=== PATIENT | male | born 1970 | race Caucasian/White ===

== ENCOUNTER 2017-02-25 10:01 | Inpatient (IN) | payer OTHER ==
[2017-02-25 10:16] VITALS: BMI 26.6
--- NOTE | 2017-02-25 10:42 | HP ---
CIWA Score - CIWA Score Nausea/Vomitin-Mild Nausea/No Vomiting Muscle Tremors: 1-None Visible, but [place] Anxiety: 4-Mod. Anxious/Guarded Agitation: 1-Slight > Activity Paroxysmal Sweats: 1-Minimal Palms Moist Orientation: 0-Oriented Tacttile Disturbances: 1-Very Mild Itch/Numbness Auditory Disturbances: 1-Very Mild Visual Disturbances: 2-Mild Sensitivity Headache: 2-Mild CIWA-Ar Total Score: 14 Admission ROS BHS - HPI Chief Complaint: I want to put an end to it and I want to save my life Allergies/Adverse Reactions: Allergies Allergy/AdvReac Type Severity Reaction Status Date / Time No Known Allergies Allergy Verified 01/31/16 12:38 History of Present Illness: 46 yo gentleman here for detox from alcohol, sometimes takes non prescribed xanax and using heroin but in [facility] methadone program (80mg). Unclear if he ever had seizure - patient states no but admits to black outs. One of several admissions for detox. 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 Exam Limitations: Clinical Condition - Ebola screening Have you traveled outside of the country in the last 21 days: No Have you had contact with anyone from an Ebola affected area: No Have you been sick,other than usual withdrawal symptoms: No Do you have a fever: No - Review of Systems Constitutional: Loss of Appetite, Malaise, Changes in sleep, Weakness EENT: reports: Nose Congestion Respiratory: reports: No Symptoms reported Cardiac: reports: No Symptoms Reported GI: reports: Nausea, Poor Appetite : reports: Frequency Musculoskeletal: reports: Back Pain Integumentary: reports: Rash Neuro: reports: Headache Endocrine: reports: No Symptoms Reported Hematology: reports: No Symptoms Reported Psychiatric: reports: Judgement Intact, Mood/Affect Appropiate, Orientated x3, Anxious Other Systems: Reviewed and Negative Patient History - Patient Medical History Hx Anemia: No Hx Asthma: No Hx Chronic Obstructive Pulmonary Disease (COPD): No Hx Cancer: No Hx Cardiac Disorders: No Hx Congestive Heart Failure: No Hx Hypertension: No Hx Hypercholesterolemia: No Hx Pacemaker: No HX Cerebrovascular Accident: No Hx Seizures: Yes (? unclear, possible drug related once in 2008) Hx Dementia: No Hx Diabetes: No Hx Gastrointestinal Disorders: No Hx Liver Disease: No Hx Genitourinary Disorders: No Hx Sexually Transmitted Disorders: No Hx Renal Disease (ESRD): No Hx Thyroid Disease: No Hx Human Immunodeficiency Virus (HIV): No Hx Hepatitis C: Yes (treated and cured) Hx Depression: Yes (anxiety) Hx Suicide Attempt: No Hx Bipolar Disorder: No Hx Schizophrenia: No Other Medical History: back pain, PPD+ - treated - Patient Surgical History Past Surgical History: Yes Hx Neurologic Surgery: No Hx Cataract Extraction: No Hx Cardiac Surgery: No Hx Lung Surgery: No Hx Breast Surgery: No Hx Breast Biopsy: No Hx Abdominal Surgery: No Hx Appendectomy: No Hx Cholecystectomy: No Hx Genitourinary Surgery: No Hx Section: No Hx Orthopedic Surgery: No Other Surgical History: tonsillectomy at age 6 Anesthesia Reaction: No - PPD History Previous Implant?: Yes Documented Results: Positive w/proof (treated with INH 1986) Date: 07/15/15 (cxr) PPD to be Administered?: No - Reproductive History Patient is a Female of Child Bearing Age (11 -55 yrs old): No (male) - Smoking Cessation Smoking history: Smoker current status UNK Have you smoked in the past 12 months: No Aproximately how many cigarettes per day: 20 Hx Chewing Tobacco Use: No Initiated information on smoking cessation: Yes 'Breaking Loose' booklet given: 02/25/17 (give on floor) - Substance & Tx. History Hx Alcohol Use: Yes Hx Substance Use: Yes Substance Use Type: Alcohol, Heroin, Tranquilizers Hx Substance Use Treatment: Yes (detox, rehab, methadone program) - Substances Abused Alcohol Route: Oral Frequency: Daily Amount used: two six packs 22 oz beer Age of first use: 7 Date of Last Use: 02/25/17 Heroin Route: Inhalation Frequency: Daily Amount used: 4-10 bags Age of first use: 16 Date of Last Use: 02/24/17 Alprazolam (Xanax) Frequency: 1-2 times per week Amount used: 2mg Age of first use: 12 (started with valium) Date of Last Use: 02/24/17 Family Disease History - Family Disease History Family Disease History: Other: Father (, aneurysm), Mother (living, healthy), Brother (four -one overdose), Daughter (age 8 - no contact) Admission Physical Exam BHS - Vital Signs Vital Signs: Vital Signs - 24 hr 02/25/17 10:07 Temperature 97.8 F Pulse Rate 84 Respiratory 20 Rate Blood Pressure 123/69 - Physical General Appearance: Yes: Nourished, Appropriately Dressed, Mild Distress, Anxious HEENTM: Yes: Hearing grossly Normal, Normal ENT Inspection, Normocephalic, Normal Voice, Pharynx Normal Respiratory: Yes: Lungs Clear, Normal Breath Sounds, No Respiratory Distress Neck: Yes: No masses,lesions,Nodules, Supple Breast: Yes: Breast Exam Deferred Cardiology: Yes: Regular Rhythm, Regular Rate Abdominal: Yes: Soft Genitourinary: Yes: Frequency Back: Yes: Normal Inspection Musculoskeletal: Yes: full range of Motion, Gait Steady, Back pain Extremities: Yes: Normal Inspection, Normal Range of Motion, Non-Tender Neurological: Yes: Fully Oriented, Alert, Motor Strength 5/5, Normal Mood/Affect , Normal Response Integumentary: Yes: Normal Color, Warm, Rash (chronic - non itchy - arms, torso) Lymphatic: Yes: Within Normal Limits - Diagnostic (1) Alcohol dependence with uncomplicated withdrawal Current Visit: Yes Status: Chronic (2) syncope alcohol related Current Visit: Yes Status: Chronic (3) Chronic low back pain Current Visit: Yes Status: Chronic Qualifiers: Back pain laterality: bilateral Sciatica presence: without sciatica Qualified Code(s): M54.5 - Low back pain; M54.5 - Low back pain; G89.29 - Other chronic pain; G89.29 - Other chronic pain (4) Methadone maintenance therapy patient Current Visit: Yes Status: Chronic Comment: [facility] - 80mg (5) Nicotine dependence Current Visit: Yes Status: Chronic Qualifiers: Nicotine product type: cigarettes Substance use status: uncomplicated Qualified Code(s): F17.210 - Nicotine dependence, cigarettes, uncomplicated; F17.210 - Nicotine dependence, cigarettes, uncomplicated (6) Hepatitis C antibody positive in blood Current Visit: Yes Status: Chronic Comment: completed treatment Cleared for Admission [facility] - Detox or Rehab [facility] Level of Care: Medically Managed Detox Regimen/Protocol: Librium [facility] Breath Alcohol Content Breath Alcohol Content: 0.083 Urine Drug Screen - Results Drug Screen Negative: No Urine Drug Screen Results: OPI-Opiates, BZO-Benzodiazepines, MTD-Methadone
[2017-02-25] MEDS ORDERED: MAG HYDROX/AL HYDROX/SIMETH 30 ML UNIT-DOSE CUP PO PRN (11:45)
[2017-02-25] MEDS ORDERED: NICOTINE POLACRILEX 2 MG GUM BUC PRN (11:45)
[2017-02-25] MEDS ORDERED: ACETAMINOPHEN 325 MG TABLET (FP) PO PRN (11:45)
[2017-02-25] MEDS ORDERED: LOPERAMIDE HCL 2 MG CAPSULE PO PRN (11:45)
[2017-02-25] MEDS ORDERED: MENTHOL/PHENOL 1 EACH UD MM PRN (11:45)
[2017-02-25] MEDS ORDERED: guaiFENesin/D-METHORPHAN HB 10 ML UNIT-DOSE CUPS PO PRN (11:45)
[2017-02-25] MEDS ORDERED: MAGNESIUM HYDROX 2400MG/30ML ORAL SUSPENSION 30 ML CUP PO PRN (11:45)
[2017-02-25] MEDS ORDERED: hydrOXYzine PAMOATE 50 MG CAPSULE (FP) PO PRN (11:45)
[2017-02-25] MEDS ORDERED: P-EPHED 60MG/TRIPROLIDI 2.5MG TABLET PO PRN (11:45)
[2017-02-25] MEDS ORDERED: MAGNESIUM CITRATE 300 ML BOTTLE PO PRN (11:45)
[2017-02-25] MEDS ORDERED: IBUPROFEN 400 MG TABLET (FP) PO PRN (11:45)
[2017-02-25] MEDS ORDERED: chlordiazePOXIDE HCL 25 MG CAPSULE PO ONE (12:30)
[2017-02-25] MEDS: NICOTINE 21 MG/24 HOURS TOPICAL PATCH TD SCH (13:38)
[2017-02-25] MEDS: chlordiazePOXIDE HCL 25 MG CAPSULE PO SCH ×2 (17:53→22:30)
[2017-02-25 18:14] LABS: URINE APPEARANCE CLEAR; URINE BILIRUBIN NEGATIVE (NEGATIVE); URINE BLOOD NEGATIVE (NEGATIVE); URINE COLOR STRAW; URINE GLUCOSE (UA) NEGATIVE (NEGATIVE); URINE KETONE NEGATIVE (NEGATIVE); URINE NITRITE NEGATIVE (NEGATIVE); URINE PROTEIN NEGATIVE (NEGATIVE); URINE UROBILINOGEN NEGATIVE mg/dL (0.2-1.0)
--- NOTE | 2017-02-25 19:39 | EKG ---
Test Reason : Blood Pressure : / mmHG Vent. Rate : 075 BPM Atrial Rate : 075 BPM P-R Int : 134 ms QRS Dur : 094 ms QT Int : 402 ms P-R-T Axes : 034 022 016 degrees QTc Int : 448 ms NORMAL SINUS RHYTHM NORMAL ECG WHEN COMPARED WITH ECG OF 12-JAN-2010 21:36, NO SIGNIFICANT CHANGE WAS FOUND REPEAT EKG IF CLINICALLY INDICATED BASELINE ARTIFACT Confirmed by PHILIP PICKARD MD ([id number]) on 02/25/2017 7:39:07 PM Referred By: Confirmed By:PHILIP PICKARD MD
[2017-02-25] MEDS ORDERED: diphenhydrAMINE HCL 50 MG CAPSULE PO PRN (22:00)
[2017-02-25] MEDS: THIAMINE HCL 100 MG TABLET (FP) PO SCH (22:29)
[2017-02-25] MEDS: TOLNAFTATE 1% CREAM 15 GM TUBE TP SCH (22:31)
[2017-02-25 23:00] LABS: URINE LEUK ESTERASE Negative (NEGATIVE)
[2017-02-26] MEDS: chlordiazePOXIDE HCL 25 MG CAPSULE PO SCH ×4 (05:53→22:22)
[2017-02-26] MEDS: NICOTINE 21 MG/24 HOURS TOPICAL PATCH TD SCH (10:11)
[2017-02-26] MEDS: PRENATAL VITAMINS W/ FOLIC ACID TABLET (FP) PO SCH (10:11)
[2017-02-26] MEDS: TOLNAFTATE 1% CREAM 15 GM TUBE TP SCH ×2 (10:11→22:23)
[2017-02-26 10:22] LABS: ALBUMIN 3.2 g/dl (3.4-5.0); ANION GAP 5 (8-16); CALCIUM 8.8 mg/dL (8.5-10.1); CO2 30 mmol/L (21-32); CREATININE 0.7 mg/dL (0.7-1.3); GLUCOSE,RANDOM 103 mg/dL (74-106); SGOT/AST 17 U/L (15-37); SGPT/ALT 22 U/L (12-78)
[2017-02-26 10:23] LABS: ALK PHOS 67 U/L (45-117); BILIRUBIN,TOTAL 0.3 mg/dL (0.2-1.0); TOT PROT 6.2 g/dl (6.4-8.2)
[2017-02-26 10:26] LABS: MCHC 32.5 g/dl (32.0-35.9); PLATELET COUNT 231 K/MM3 (134-434); WHITE BLOOD COUNT 7.7 K/mm3 (4.0-10.0)
[2017-02-26] MEDS ORDERED: METHADONE HCL 10 MG TABLET PO SCH (10:30)
--- NOTE | 2017-02-26 10:31 | PN ---
[facility] CIWA - CIWA Score Nausea/Vomitin-No Nausea/No Vomiting Muscle Tremors: 4-Moderate,w/Arms Extend Anxiety: 4-Mod. Anxious/Guarded Agitation: 3 Paroxysmal Sweats: 3 Orientation: 0-Oriented Tacttile Disturbances: 0-None Auditory Disturbances: 0-None Visual Disturbances: 0-None Headache: 0-None Present CIWA-Ar Total Score: 14 BHS Progress Note (SOAP) Subjective: Anxiety,tremors,sweating,interrupted sleep,restless Objective: 02/26/17 10:30 Vital Signs - 8 hr 02/26/17 02/26/17 02/26/17 03:54 05:00 09:58 Temperature 96.9 F L 97 F L Pulse Rate 90 81 Respiratory 18 18 18 Rate Blood Pressure 100/60 126/63 Laboratory Tests 02/25/17 02/26/17 14:40 07:40 Sodium 139 Potassium 4.1 Chloride 104 Carbon Dioxide 30 Anion Gap 5 L BUN 13 Creatinine 0.7 D Creat Clearance w eGFR > 60 Random Glucose 103 D Calcium 8.8 Total Bilirubin 0.3 D AST 17 ALT 22 Alkaline Phosphatase 67 D Total Protein 6.2 L Albumin 3.2 L Urine Color Straw Urine Appearance Clear Urine pH 6.0 Ur Specific [place] <= 1.005 Urine Protein Negative Urine Glucose (UA) Negative Urine Ketones Negative Urine Blood Negative Urine Nitrite Negative Urine Bilirubin Negative Urine Urobilinogen Negative Ur Leukocyte Esterase Negative labs noted Assessment: 02/26/17 10:30 Withdrawal sx. Plan: Continue detox
[2017-02-26] MEDS ORDERED: METHADONE HCL 10 MG TABLET ONE (11:22)
[2017-02-26] MEDS ORDERED: METHADONE HCL 40 MG DISPERSABLE TABLET ONE (11:23)
[2017-02-26] MEDS: METHADONE 40 MG, METHADONE 30 MG PO SCH (11:24)
--- NOTE | 2017-02-26 11:32 | CONSULT ---
[facility] Psychiatric Consult - Data Date of interview: 02/26/17 Admission source: Self-referred Identifying data: Mr Robledo is a 46 years old male, father of an 8 years old daughter, employed in maintenance at [employer], homeless staying with friends Substance Abuse History: Reports history of alcohol, heroin and Xanax use. Refer to medical and counselor's notes for more detailed information Medical History: Significant for treatment for +PPD and hepatitis c, Sciatica/ Hernated Disc/back pain and history of tonsillectomy at age 4. Smokes 7 cigarettes daily Psychiatric History: Reports a few psychiatric admissions in the context of homelessness, addiction and other psychosocial issues. Denies previous treament with psychiatric medication. Reports sleeping poorly and requested Ambien to which he responded well in the past Physical/Sexual Abuse/Trauma History: Denies history of verbal, physical or sexual abuse as well as DV relationship Additional Comment: Reports history of mutiple arrests including 5 felony convictions. Denies being on parole/probation Mental Status Exam - Mental Status Exam Alert and Oriented to: Time, Place, Person Cognitive Function: Fair Patient Appearance: Well Groomed Mood: Hopeful, Euthymic Affect: Appropriate Patient Behavior: Cooperative Speech Pattern: Clear Voice Loudness: Normal Thought Process: Intact, Goal Oriented Thought Disorder: Not Present Hallucinations: Denies Suicidal Ideation: Denies Homicidal Ideation: Denies Insight/Judgement: Poor Sleep: Poorly Appetite: Fair Muscle strength/Tone: Normal Gait/Station: Normal Psychiatric Findings - Problem List ([place] 1, 2,3) (1) Substance-induced sleep disorder Current Visit: No Status: Acute (2) Alcohol dependence with uncomplicated withdrawal Current Visit: Yes Status: Chronic (3) Uncomplicated sedative, hypnotic or anxiolytic withdrawal Current Visit: No Status: Acute (4) Opioid dependence on agonist therapy Current Visit: No Status: Acute (5) Nicotine dependence Current Visit: Yes Status: Chronic Qualifiers: Nicotine product type: cigarettes Substance use status: uncomplicated Qualified Code(s): F17.210 - Nicotine dependence, cigarettes, uncomplicated; F17.210 - Nicotine dependence, cigarettes, uncomplicated (6) Chronic low back pain Current Visit: Yes Status: Chronic Qualifiers: Back pain laterality: bilateral Sciatica presence: without sciatica Qualified Code(s): M54.5 - Low back pain; M54.5 - Low back pain; G89.29 - Other chronic pain; G89.29 - Other chronic pain (7) Hepatitis C antibody positive in blood Current Visit: Yes Status: Chronic Comment: completed treatment (8) Right sided sciatica Current Visit: No Status: Acute - Initial Treatment Plan Initial Treatment Plan: 1) Start Ambien 10 mg po HS prn for insomnia. 2) Continue inpatient detoxication
[2017-02-26] MEDS ORDERED: ZOLPIDEM TARTRATE 5 MG TABLET PO PRN (12:02)
[2017-02-26] MEDS: chlordiazePOXIDE HCL 25 MG CAPSULE PO PRN (14:45)
[2017-02-26] MEDS: ZOLPIDEM TARTRATE 5 MG TABLET PO PRN (22:22)
[2017-02-26] MEDS: THIAMINE HCL 100 MG TABLET (FP) PO SCH (22:22)
[2017-02-27] MEDS ORDERED: METHADONE HCL 10 MG TABLET ONE (03:53)
[2017-02-27] MEDS ORDERED: METHADONE HCL 40 MG DISPERSABLE TABLET ONE (03:54)
[2017-02-27] MEDS: METHADONE 40 MG, METHADONE 30 MG PO SCH (05:04)
[2017-02-27] MEDS: chlordiazePOXIDE HCL 25 MG CAPSULE PO SCH ×2 (05:05→10:30)
[2017-02-27] MEDS: chlordiazePOXIDE HCL 25 MG CAPSULE PO PRN (08:27)
[2017-02-27] MEDS: PRENATAL VITAMINS W/ FOLIC ACID TABLET (FP) PO SCH (10:30)
[2017-02-27] MEDS: NICOTINE 21 MG/24 HOURS TOPICAL PATCH TD SCH (10:30)
[2017-02-27] MEDS: TOLNAFTATE 1% CREAM 15 GM TUBE TP SCH ×2 (10:30→22:38)
--- NOTE | 2017-02-27 11:19 | PN ---
[facility] CIWA - CIWA Score Nausea/Vomitin-No Nausea/No Vomiting Muscle Tremors: 4-Moderate,w/Arms Extend Anxiety: 4-Mod. Anxious/Guarded Agitation: 4-Moderately Restless Paroxysmal Sweats: 1-Minimal Palms Moist Orientation: 1-Uncertain about Date Tacttile Disturbances: 3-Moderate Itch/Numb/Burn Auditory Disturbances: 0-None Visual Disturbances: 0-None Headache: 0-None Present CIWA-Ar Total Score: 17 S Progress Note (SOAP) Subjective: ANXIETY,SWEATS/CHILLS, IRRITABILITY,FATIGUE. Objective: 02/27/17 11:23 Laboratory Last Values WBC 7.7 K/mm3 (4.0-10.0) 02/26/17 07:40 RBC 5.11 M/mm3 (4.00-5.60) 02/26/17 07:40 Hgb 14.8 GM/dL (11.7-16.9) 02/26/17 07:40 Hct 45.5 % (35.4-49) 02/26/17 07:40 MCV 89.0 fl (80-96) 02/26/17 07:40 MCH 29.0 pg (25.7-33.7) 02/26/17 07:40 MCHC 32.5 g/dl (32.0-35.9) 02/26/17 07:40 RDW 14.0 % (11.9-15.9) 02/26/17 07:40 Plt Count 231 K/MM3 (134-434) 02/26/17 07:40 MPV 8.0 fl (7.5-11.1) 02/26/17 07:40 Sodium 139 mmol/L (136-145) 02/26/17 07:40 Potassium 4.1 mmol/L (3.5-5.1) 02/26/17 07:40 Chloride 104 mmol/L (98-107) 02/26/17 07:40 Carbon Dioxide 30 mmol/L (21-32) 02/26/17 07:40 Anion Gap 5 (8-16) L 02/26/17 07:40 BUN 13 mg/dL (7-18) 02/26/17 07:40 Creatinine 0.7 mg/dL (0.7-1.3) D 02/26/17 07:40 Creat Clearance w eGFR > 60 (>60) 02/26/17 07:40 Random Glucose 103 mg/dL (74-106) D 02/26/17 07:40 Calcium 8.8 mg/dL (8.5-10.1) 02/26/17 07:40 Total Bilirubin 0.3 mg/dL (0.2-1.0) D 02/26/17 07:40 AST 17 U/L (15-37) 02/26/17 07:40 ALT 22 U/L (12-78) 02/26/17 07:40 Alkaline Phosphatase 67 U/L (45-117) D 02/26/17 07:40 Total Protein 6.2 g/dl (6.4-8.2) L 02/26/17 07:40 Albumin 3.2 g/dl (3.4-5.0) L 02/26/17 07:40 Urine Color Straw 02/25/17 14:40 Urine Appearance Clear 02/25/17 14:40 Urine pH 6.0 (5.0-8.0) 02/25/17 14:40 Ur Specific [place] <= 1.005 (1.005-1.025) 02/25/17 14:40 Urine Protein Negative (NEGATIVE) 02/25/17 14:40 Urine Glucose (UA) Negative (NEGATIVE) 02/25/17 14:40 Urine Ketones Negative (NEGATIVE) 02/25/17 14:40 Urine Blood Negative (NEGATIVE) 02/25/17 14:40 Urine Nitrite Negative (NEGATIVE) 02/25/17 14:40 Urine Bilirubin Negative (NEGATIVE) 02/25/17 14:40 Urine Urobilinogen Negative mg/dL (0.2-1.0) 02/25/17 14:40 Ur Leukocyte Esterase Negative (NEGATIVE) 02/25/17 14:40 RPR Titer Nonreactive (NONREACTIVE) 02/26/17 07:40 Last Vital Signs Temp Pulse Resp BP Pulse Ox 97.5 F L 68 18 104/50 02/27/17 10:54 02/27/17 10:54 02/27/17 10:54 02/27/17 10:54 Assessment: 02/27/17 11:23 WITHDRAWAL SX Plan: CONTINUE DETOX
[2017-02-27] MEDS: chlordiazePOXIDE 5 MG CAPSULE PO SCH ×2 (17:22→22:06)
[2017-02-27] MEDS: THIAMINE HCL 100 MG TABLET (FP) PO SCH (22:06)
[2017-02-27] MEDS: ZOLPIDEM TARTRATE 5 MG TABLET PO PRN (22:06)
[2017-02-28] MEDS: chlordiazePOXIDE HCL 25 MG CAPSULE PO PRN (03:40)
[2017-02-28] MEDS ORDERED: METHADONE HCL 10 MG TABLET ONE (04:01)
[2017-02-28] MEDS ORDERED: METHADONE HCL 40 MG DISPERSABLE TABLET ONE (04:02)
[2017-02-28] MEDS: METHADONE 40 MG, METHADONE 30 MG PO SCH (05:42)
[2017-02-28] MEDS: chlordiazePOXIDE 5 MG CAPSULE PO SCH ×2 (05:42→10:21)
[2017-02-28] MEDS: PRENATAL VITAMINS W/ FOLIC ACID TABLET (FP) PO SCH (10:21)
[2017-02-28] MEDS: NICOTINE 21 MG/24 HOURS TOPICAL PATCH TD SCH (10:21)
[2017-02-28] MEDS: TOLNAFTATE 1% CREAM 15 GM TUBE TP SCH ×2 (10:21→22:32)
--- NOTE | 2017-02-28 13:08 | PN ---
BHS Progress Note (SOAP) Subjective: Sweating, Anxious, Stomach Cramping, Body Aches, Interrupted sleep. Objective: PT. A & O X 3, OBSERVED AMBULATING ON UNIT. NO ACUTE DISTRESS. 02/28/17 13:07 Vital Signs Temperature 97.7 F 02/28/17 10:08 Pulse Rate 85 02/28/17 10:08 Respiratory Rate 18 02/28/17 10:08 Blood Pressure 106/70 02/28/17 10:08 O2 Sat by Pulse Oximetry (%) Laboratory Tests 02/25/17 02/26/17 02/26/17 14:40 07:40 07:40 WBC 7.7 RBC 5.11 Hgb 14.8 Hct 45.5 MCV 89.0 MCH 29.0 MCHC 32.5 RDW 14.0 Plt Count 231 MPV 8.0 Sodium 139 Potassium 4.1 Chloride 104 Carbon Dioxide 30 Anion Gap 5 L BUN 13 Creatinine 0.7 D Creat Clearance w eGFR > 60 Random Glucose 103 D Calcium 8.8 Total Bilirubin 0.3 D AST 17 ALT 22 Alkaline Phosphatase 67 D Total Protein 6.2 L Albumin 3.2 L Urine Color Straw Urine Appearance Clear Urine pH 6.0 Ur Specific [place] <= 1.005 Urine Protein Negative Urine Glucose (UA) Negative Urine Ketones Negative Urine Blood Negative Urine Nitrite Negative Urine Bilirubin Negative Urine Urobilinogen Negative Ur Leukocyte Esterase Negative RPR Titer 02/26/17 07:40 WBC RBC Hgb Hct MCV MCH MCHC RDW Plt Count MPV Sodium Potassium Chloride Carbon Dioxide Anion Gap BUN Creatinine Creat Clearance w eGFR Random Glucose Calcium Total Bilirubin AST ALT Alkaline Phosphatase Total Protein Albumin Urine Color Urine Appearance Urine pH Ur Specific [place] Urine Protein Urine Glucose (UA) Urine Ketones Urine Blood Urine Nitrite Urine Bilirubin Urine Urobilinogen Ur Leukocyte Esterase RPR Titer Nonreactive LABS NOTED. Assessment: 02/28/17 13:07 WITHDRAWAL SYMPTOMS. Plan: CONTINUE DETOX.
[2017-02-28] MEDS: chlordiazePOXIDE HCL 10 MG CAPSULE PO SCH ×2 (17:21→22:07)
[2017-02-28] MEDS: ZOLPIDEM TARTRATE 5 MG TABLET PO PRN (22:07)
[2017-02-28] MEDS: THIAMINE HCL 100 MG TABLET (FP) PO SCH (22:07)
[2017-02-28 22:22] VITALS: TEMP 96.7
[2017-03-01] MEDS ORDERED: METHADONE HCL 40 MG DISPERSABLE TABLET ONE (05:11)
[2017-03-01] MEDS ORDERED: METHADONE HCL 10 MG TABLET ONE (05:11)
[2017-03-01] MEDS: METHADONE 40 MG, METHADONE 30 MG PO SCH (05:30)
[2017-03-01] MEDS: chlordiazePOXIDE HCL 10 MG CAPSULE PO SCH ×2 (05:30→05:32)
[2017-03-01 06:34] VITALS: BP 115/70; PULSE 87
--- NOTE | 2017-03-01 15:55 | DS ---
[facility] Detox Discharge Summary Admission Date: 02/25/17 Discharge Date: 03/01/17 - History Present History: Alcohol Dependence, MMTP Additional Comments: PATIENT ADVISED TO CONSIDER LOCAL 12-STEP / AA OUTPATIENT SUPPORT GROUPS FOR AFTERCARE. PATIENT WAS DISCHARGED FROM DETOX UNIT IN STABLE MEDICAL CONDITION. Pertinent Past History: Hep C, Depression, Nicotine Dependence, Chronic Low Back Pain, Sciatica, MMTP, History of Positive PPD (Treated), History of Seizures, History of Syncope. - Physical Exam Results Vital Signs: Vital Signs Temperature 96.7 F L 03/01/17 06:33 Pulse Rate 87 03/01/17 06:33 Respiratory Rate 18 03/01/17 06:33 Blood Pressure 115/70 03/01/17 06:33 O2 Sat by Pulse Oximetry (%) Pertinent Admission Physical Exam Findings: WITHDRAWAL SYMPTOMS. Laboratory Tests 02/25/17 02/26/17 02/26/17 14:40 07:40 07:40 WBC 7.7 RBC 5.11 Hgb 14.8 Hct 45.5 MCV 89.0 MCH 29.0 MCHC 32.5 RDW 14.0 Plt Count 231 MPV 8.0 Sodium 139 Potassium 4.1 Chloride 104 Carbon Dioxide 30 Anion Gap 5 L BUN 13 Creatinine 0.7 D Creat Clearance w eGFR > 60 Random Glucose 103 D Calcium 8.8 Total Bilirubin 0.3 D AST 17 ALT 22 Alkaline Phosphatase 67 D Total Protein 6.2 L Albumin 3.2 L Urine Color Straw Urine Appearance Clear Urine pH 6.0 Ur Specific [place] <= 1.005 Urine Protein Negative Urine Glucose (UA) Negative Urine Ketones Negative Urine Blood Negative Urine Nitrite Negative Urine Bilirubin Negative Urine Urobilinogen Negative Ur Leukocyte Esterase Negative RPR Titer 02/26/17 07:40 WBC RBC Hgb Hct MCV MCH MCHC RDW Plt Count MPV Sodium Potassium Chloride Carbon Dioxide Anion Gap BUN Creatinine Creat Clearance w eGFR Random Glucose Calcium Total Bilirubin AST ALT Alkaline Phosphatase Total Protein Albumin Urine Color Urine Appearance Urine pH Ur Specific [place] Urine Protein Urine Glucose (UA) Urine Ketones Urine Blood Urine Nitrite Urine Bilirubin Urine Urobilinogen Ur Leukocyte Esterase RPR Titer Nonreactive LABS NOTED. - Treatment Hospital Course: Detox Protocol Followed, Detoxed Safely, Responded well, Discharged Condition Good Patient has Accepted a Rehab Referral to: NO. PT. ADVISED TO CONSIDER LOCAL 12- STEP/AA SUPPORT GROUPS FOR AFTERCARE. - Diagnosis (1) Alcohol dependence with uncomplicated withdrawal Status: Acute (2) Opioid dependence on agonist therapy Status: Chronic (3) Right sided sciatica Status: Acute (4) Chronic low back pain Status: Chronic Qualifiers: Back pain laterality: bilateral Sciatica presence: without sciatica Qualified Code(s): M54.5 - Low back pain; M54.5 - Low back pain; G89.29 - Other chronic pain; G89.29 - Other chronic pain (5) Hep C w/o coma, chronic Status: Chronic (6) Hepatitis C antibody positive in blood Status: Chronic (7) Methadone maintenance therapy patient Status: Chronic (8) Nicotine dependence Status: Chronic Qualifiers: Nicotine product type: cigarettes Substance use status: uncomplicated Qualified Code(s): F17.210 - Nicotine dependence, cigarettes, uncomplicated; F17.210 - Nicotine dependence, cigarettes, uncomplicated (9) syncope alcohol related Status: Chronic (10) Substance-induced sleep disorder Status: Acute - AMA Did Patient Leave Against Medical Advice: No
== END 2017-03-01 06:18 | disposition home or self-care (01) | DRG 773 ==
LOC: YASAS 10:01 → Y3N 12:15
PROVIDERS: ADMIT Internal Medicine; ATTEND Internal Medicine
PROC: HZ2ZZZZ Detoxification Services for Substance Abuse Treatment (ICD-10-PCS; principal; 2017-02-25)
DX: F10.230 Alcohol dependence with withdrawal, uncomplicated (principal); F11.20 Opioid dependence, uncomplicated; F13.20 Sedative, hypnotic or anxiolytic dependence, uncomplicated; F17.210 Nicotine dependence, cigarettes, uncomplicated; F19.282 Other psychoactive substance dependence with psychoactive substance-induced sleep disorder; M54.41 Lumbago with sciatica, right side; G89.29 Other chronic pain; B18.2 Chronic viral hepatitis C; Z86.79 Personal history of other diseases of the circulatory system
CPT/HCPCS: 36415; 71020-TC; 80053; 81003; 85027; 86593; 93005; 93010

== ENCOUNTER 2017-12-25 10:09 | Inpatient (IN) | payer OTHER ==
[2017-12-25 10:25] VITALS: BMI 31.9
--- NOTE | 2017-12-25 11:07 | HP ---
CIWA Score - CIWA Score Nausea/Vomitin-Mild Nausea/No Vomiting Muscle Tremors: 2 Anxiety: 3 Agitation: 2 Paroxysmal Sweats: 1-Minimal Palms Moist Orientation: 1-Uncertain about Date Tacttile Disturbances: 0-None Auditory Disturbances: 0-None Visual Disturbances: 0-None Headache: 2-Mild CIWA-Ar Total Score: 12 Admission [facility] Chief Complaint: Patient presents with ETOH/BZO withdrawal symptoms. Allergies/Adverse Reactions: Allergies Allergy/AdvReac Type Severity Reaction Status Date / Time No Known Allergies Allergy Verified 12/25/17 10:42 History of Present Illness: Patient presents with ETOH/Benzodiazepine withdrawal symptoms. Patient started drinking at age 9 and drinks up to 20 beers daily. Last drink this morning. Also started taking Xanax, non-prescribed, 8 years ago and takes up to 8mg daily. Last dose last night. Patient denies hx of seizures. Patient also on MMTP at [facility]. Confirmed by RN. Methadone dose 70mg adn last dose today. PMH includes Hepatitis C treated, depression/anxiety, +ppd and chronic LBP. Patient last detox attempt here at [facility] 02/2017. Patient denies SI/ HI. Exam Limitations: No Limitations - Ebola screening Have you traveled outside of the country in the last 21 days: No Have you had contact with anyone from an Ebola affected area: No Have you been sick,other than usual withdrawal symptoms: No Do you have a fever: No - Review of Systems Constitutional: Chills, Night Sweats, Changes in sleep EENT: reports: Ear Discharge (right ear with serous discharge x one week) Respiratory: reports: Cough (occasional dry cough) Cardiac: reports: No Symptoms Reported GI: reports: Diarrhea, Nausea, Poor Fluid Intake, Abdominal cramping : reports: No Symptoms Reported Musculoskeletal: reports: Back Pain Integumentary: reports: Flushing, Sweating Neuro: reports: Headache, Tremors Endocrine: reports: No Symptoms Reported Hematology: reports: No Symptoms Reported Psychiatric: reports: Anxious, Depressed Patient History - Patient Medical History Hx Anemia: No Hx Asthma: No Hx Chronic Obstructive Pulmonary Disease (COPD): No Hx Cancer: No Hx Cardiac Disorders: No Hx Congestive Heart Failure: No Hx Hypertension: No Hx Hypercholesterolemia: No Hx Pacemaker: No HX Cerebrovascular Accident: No Hx Seizures: Yes (? unclear, possible drug related once in 2008) Hx Dementia: No Hx Diabetes: No Hx Gastrointestinal Disorders: No Hx Liver Disease: No Hx Genitourinary Disorders: No Hx Sexually Transmitted Disorders: No Hx Renal Disease (ESRD): No Hx Thyroid Disease: No Hx Human Immunodeficiency Virus (HIV): No Hx Hepatitis C: Yes (treated and cured) Hx Depression: Yes (anxiety) Hx Suicide Attempt: No Hx Bipolar Disorder: No Hx Schizophrenia: No - Patient Surgical History Past Surgical History: Yes Hx Neurologic Surgery: No Hx Cataract Extraction: No Hx Cardiac Surgery: No Hx Lung Surgery: No Hx Breast Surgery: No Hx Breast Biopsy: No Hx Abdominal Surgery: No Hx Appendectomy: No Hx Cholecystectomy: No Hx Genitourinary Surgery: No Hx Orthopedic Surgery: No Other Surgical History: tonsillectomy at age 6 Anesthesia Reaction: No - PPD History Documented Results: Positive w/proof Date: 07/15/15 PPD to be Administered?: No - Smoking Cessation Smoking history: Smoker current status UNK Have you smoked in the past 12 months: No Aproximately how many cigarettes per day: 20 Hx Chewing Tobacco Use: No Initiated information on smoking cessation: Yes 'Breaking Loose' booklet given: 12/25/17 - Substance & Tx. History Hx Alcohol Use: Yes Hx Substance Use: Yes Substance Use Type: Alcohol, Tranquilizers Hx Substance Use Treatment: Yes - Substances Abused Alcohol Route: Oral Frequency: Daily Amount used: 20 beers Age of first use: 9 Date of Last Use: 12/25/17 Alprazolam (Xanax) Route: Oral Frequency: Daily Amount used: 8mg Age of first use: 39 Date of Last Use: 12/25/17 Alcohol-beer Route: Oral Frequency: Daily Amount used: 3-6 pks. Age of first use: 12 Date of Last Use: 12/25/17 Xanax/Klonopin Route: Oral Frequency: 3-6 times per week Amount used: 6 mg. Age of first use: 43 Date of Last Use: 12/25/17 Family Disease History - Family Disease History Family Disease History: Other: Father (, aneurysm), Mother (living, healthy), Brother (four -one overdose), Daughter (age 8 - no contact) Admission Physical Exam [facility] - Vital Signs Vital Signs: Vital Signs - 24 hr 12/25/17 10:24 Temperature 97.3 F L Pulse Rate 88 Respiratory 18 Rate Blood Pressure 117/75 - Physical General Appearance: Yes: Appropriately Dressed, Alcohol on Breath, Tremorous, Sweating, Anxious HEENTM: Yes: Hearing grossly Normal, Normocephalic, Normal Voice, GRACIELA, Pharynx Normal, Other (right ear canal with serous discharge) Respiratory: Yes: Chest Non-Tender, Lungs Clear, Normal Breath Sounds Neck: Yes: No masses,lesions,Nodules, Supple, Trachea in good position Breast: Yes: Breast Exam Deferred Cardiology: Yes: Regular Rhythm, Regular Rate, S1, S2 Abdominal: Yes: Normal Bowel Sounds, Non Tender, Soft Genitourinary: Yes: Within Normal Limits Back: Yes: Normal Inspection Musculoskeletal: Yes: full range of Motion, Gait Steady Extremities: Yes: Normal Inspection, Normal Range of Motion, Tremors Neurological: Yes: van helper II-XII NML intact, Fully Oriented, Alert, Motor Strength 5/5, Depressed Affect Integumentary: Yes: Normal Color, Dry, Warm Lymphatic: Yes: Within Normal Limits - Diagnostic (1) PPD positive Current Visit: Yes Status: Chronic (2) Otitis externa Current Visit: Yes Status: Acute Qualifiers: Otitis externa type: unspecified type Chronicity: acute Laterality: right Qualified Code(s): H60.501 - Unspecified acute noninfective otitis externa, right ear (3) Opioid dependence Current Visit: Yes Status: Chronic (4) Alcohol dependence with uncomplicated withdrawal Current Visit: Yes Status: Acute (5) Anxiety and depression Current Visit: Yes Status: Acute (6) Right sided sciatica Current Visit: Yes Status: Chronic (7) Uncomplicated sedative, hypnotic or anxiolytic withdrawal Current Visit: Yes Status: Acute (8) Chronic low back pain Current Visit: Yes Status: Chronic Qualifiers: Back pain laterality: bilateral Sciatica presence: without sciatica Qualified Code(s): M54.5 - Low back pain (9) Methadone maintenance therapy patient Current Visit: Yes Status: Chronic Comment: [facility] - 80mg (10) Nicotine dependence Current Visit: Yes Status: Chronic Qualifiers: Nicotine product type: cigarettes Substance use status: uncomplicated Qualified Code(s): F17.210 - Nicotine dependence, cigarettes, uncomplicated Cleared for Admission S - Detox or Rehab [facility] Level of Care: Medically Managed Detox Regimen/Protocol: Librium S Breath Alcohol Content Breath Alcohol Content: 0.059 Urine Drug Screen - Results Drug Screen Negative: No Urine Drug Screen Results: BZO-Benzodiazepines, MTD-Methadone
[2017-12-25] MEDS ORDERED: MAGNESIUM HYDROX 2400MG/30ML ORAL SUSPENSION 30 ML CUP PO PRN (11:29)
[2017-12-25] MEDS ORDERED: LOPERAMIDE HCL 2 MG CAPSULE PO PRN (11:29)
[2017-12-25] MEDS ORDERED: P-EPHED 60MG/TRIPROLIDI 2.5MG TABLET PO PRN (11:29)
[2017-12-25] MEDS ORDERED: ACETAMINOPHEN 325 MG TABLET (FP) PO PRN (11:29)
[2017-12-25] MEDS ORDERED: MENTHOL/PHENOL 1 EACH UD MM PRN (11:29)
[2017-12-25] MEDS ORDERED: guaiFENesin/D-METHORPHAN HB 10 ML UNIT-DOSE CUPS PO PRN (11:29)
[2017-12-25] MEDS ORDERED: IBUPROFEN 400 MG TABLET (FP) PO PRN (11:29)
[2017-12-25] MEDS ORDERED: hydrOXYzine PAMOATE 50 MG CAPSULE (FP) PO PRN (11:29)
[2017-12-25] MEDS ORDERED: MAG HYDROX/AL HYDROX/SIMETH 30 ML UNIT-DOSE CUP PO PRN (11:29)
[2017-12-25] MEDS ORDERED: MAGNESIUM CITRATE 300 ML BOTTLE PO PRN (11:29)
[2017-12-25] MEDS ORDERED: chlordiazePOXIDE HCL 25 MG CAPSULE PO ONE (12:15)
[2017-12-25] MEDS: NICOTINE POLACRILEX 2 MG GUM BUC PRN ×2 (12:45→18:27)
[2017-12-25] MEDS: AMOXICILLIN 500 MG CAPSULE (FP) PO SCH ×2 (13:49→22:06)
[2017-12-25] MEDS: chlordiazePOXIDE HCL 25 MG CAPSULE PO PRN (14:49)
[2017-12-25 15:54] LABS: HEMATOCRIT 43.2 % (35.4-49); HEMOGLOBIN 14.4 GM/dL (11.7-16.9); MCH 29.5 pg (25.7-33.7); MCHC 33.4 g/dl (32.0-35.9); MEAN CELL VOLUME 88.3 fl (80-96); MEAN PLT VOLUME 8.3 fl (7.5-11.1); PLATELET COUNT 287 K/MM3 (134-434); RBC 4.89 M/mm3 (4.00-5.60); RDW 13.4 % (11.9-15.9); WHITE BLOOD COUNT 8.6 K/mm3 (4.0-10.0)
[2017-12-25 16:04] LABS: ALBUMIN 3.7 g/dl (3.4-5.0); BLOOD UREA NITROGEN 11 mg/dL (7-18); CHLORIDE 104 mmol/L (98-107); GLUCOSE,RANDOM 75 mg/dL (74-106); POTASSIUM 4.3 mmol/L (3.5-5.1); SODIUM 140 mmol/L (136-145)
[2017-12-25 16:10] LABS: ALK PHOS 76 U/L (45-117); ANION GAP 7 (8-16); BILIRUBIN,TOTAL 0.2 mg/dL (0.2-1.0); CALCIUM 8.8 mg/dL (8.5-10.1); CO2 29 mmol/L (21-32); CREATININE 0.9 mg/dL (0.7-1.3); SGOT/AST 16 U/L (15-37); SGPT/ALT 27 U/L (12-78); TOT PROT 7.1 g/dl (6.4-8.2)
--- NOTE | 2017-12-25 16:48 | EKG ---
Test Reason : Blood Pressure : / mmHG Vent. Rate : 073 BPM Atrial Rate : 073 BPM P-R Int : 156 ms QRS Dur : 096 ms QT Int : 418 ms P-R-T Axes : 052 016 026 degrees QTc Int : 460 ms NORMAL SINUS RHYTHM NORMAL ECG WHEN COMPARED WITH ECG OF 25-FEB-2017 13:58, NO SIGNIFICANT CHANGE WAS FOUND Confirmed by CHEKO HUFFMAN MD ([id number]) on 12/25/2017 4:47:25 PM Referred By: Confirmed By:CHEKO HUFFMAN MD
[2017-12-25] MEDS: chlordiazePOXIDE HCL 25 MG CAPSULE PO SCH ×2 (17:12→22:07)
[2017-12-25] MEDS ORDERED: PT OWN MED DRAWER 7, Y5N ONE (21:47)
[2017-12-25] MEDS ORDERED: THIAMINE HCL 100 MG TABLET (FP) PO SCH (22:00)
[2017-12-25] MEDS ORDERED: MELATONIN 5 MG TABLETS PO PRN (22:00)
[2017-12-26 02:36] LABS: URINE APPEARANCE CLEAR; URINE BILIRUBIN NEGATIVE (<2.0 mg/dL); URINE COLOR STRAW; URINE GLUCOSE (UA) NEGATIVE (NEGATIVE); URINE KETONE NEGATIVE (NEGATIVE); URINE LEUK ESTERASE NEGATIVE (NEGATIVE); URINE NITRITE NEGATIVE (NEGATIVE); URINE PROTEIN NEGATIVE (NEGATIVE); URINE UROBILINOGEN NEGATIVE mg/dL (0.2-1.0)
[2017-12-26] MEDS: chlordiazePOXIDE HCL 25 MG CAPSULE PO PRN (02:42)
[2017-12-26] MEDS ORDERED: METHADONE HCL 10 MG TABLET ONE (04:51)
[2017-12-26] MEDS ORDERED: METHADONE HCL 40 MG DISPERSABLE TABLET ONE (04:52)
[2017-12-26] MEDS: chlordiazePOXIDE HCL 25 MG CAPSULE PO SCH (05:39)
[2017-12-26] MEDS: AMOXICILLIN 500 MG CAPSULE (FP) PO SCH (05:39)
[2017-12-26] MEDS ORDERED: METHADONE 40 MG, METHADONE 30 MG PO SCH (06:00)
[2017-12-26] MEDS ORDERED: METHADONE HCL 10 MG TABLET PO SCH (06:00)
[2017-12-26 06:19] VITALS: BP 126/77; PULSE 69; TEMP 96.7
--- NOTE | 2017-12-26 06:21 | PN ---
[facility] Progress Note Note: INFORMED CLIENT IS SIGNING OUT AMA. CLIENT REPORTS HE HAS AN EMERGENCY AND DOES NOT WANT TO CONTINUE TXMENT. CLIENT DECLINES TO SPEAK WITH CHIEF CREW SCHEDULER. CLIENT SIGNED OUT AMA. LEFT UNIT IN STABLE CONDITION A/O X3 NAD Vital Signs Temperature 96.7 F L 12/26/17 06:18 Pulse Rate 69 12/26/17 06:18 Respiratory Rate 18 12/26/17 06:18 Blood Pressure 126/77 12/26/17 06:18 O2 Sat by Pulse Oximetry (%)
--- NOTE | 2017-12-26 07:13 | DS ---
[facility] Detox Discharge Summary Admission Date: 12/25/17 Discharge Date: 12/26/17 - History Present History: Alcohol Dependence, Opioid Dependence, Sedative Dependence, MMTP Pertinent Past History: hep c hx/o +ppd sciatica chronic low back pain mmtp nicotine dep - Physical Exam Results Vital Signs: Vital Signs Temperature 96.7 F L 12/26/17 06:18 Pulse Rate 69 12/26/17 06:18 Respiratory Rate 18 12/26/17 06:18 Blood Pressure 126/77 12/26/17 06:18 O2 Sat by Pulse Oximetry (%) Pertinent Admission Physical Exam Findings: withdrawal sx's Laboratory Results - last 24 hr 12/25/17 12/25/17 12/25/17 11:00 11:00 11:00 WBC 8.6 RBC 4.89 Hgb 14.4 Hct 43.2 MCV 88.3 MCH 29.5 MCHC 33.4 RDW 13.4 Plt Count 287 D MPV 8.3 Sodium 140 Potassium 4.3 Chloride 104 Carbon Dioxide 29 Anion Gap 7 L BUN 11 Creatinine 0.9 Creat Clearance w eGFR > 60 Random Glucose 75 D Calcium 8.8 Total Bilirubin 0.2 AST 16 ALT 27 D Alkaline Phosphatase 76 Total Protein 7.1 Albumin 3.7 Urine Color Urine Appearance Urine pH Ur Specific [place] Urine Protein Urine Glucose (UA) Urine Ketones Urine Blood Urine Nitrite Urine Bilirubin Urine Urobilinogen Ur Leukocyte Esterase RPR Titer Nonreactive 12/25/17 23:12 WBC RBC Hgb Hct MCV MCH MCHC RDW Plt Count MPV Sodium Potassium Chloride Carbon Dioxide Anion Gap BUN Creatinine Creat Clearance w eGFR Random Glucose Calcium Total Bilirubin AST ALT Alkaline Phosphatase Total Protein Albumin Urine Color Straw Urine Appearance Clear Urine pH 6.0 Ur Specific [place] 1.005 Urine Protein Negative Urine Glucose (UA) Negative Urine Ketones Negative Urine Blood Negative Urine Nitrite Negative Urine Bilirubin Negative Urine Urobilinogen Negative Ur Leukocyte Esterase Negative RPR Titer - Treatment Hospital Course: Discharged Condition Good - Medication Discharge Medications: Ambulatory Orders Amoxicillin - [Amoxicillin 500mg Capsule -] 500 mg PO TID #21 capsule 12/26/17 - Diagnosis (1) Alcohol dependence with uncomplicated withdrawal Current Visit: Yes Status: Acute (2) Anxiety and depression Current Visit: Yes Status: Acute (3) Otitis externa Current Visit: Yes Status: Acute Qualifiers: Otitis externa type: unspecified type Chronicity: acute Laterality: right Qualified Code(s): H60.501 - Unspecified acute noninfective otitis externa, right ear (4) Uncomplicated sedative, hypnotic or anxiolytic withdrawal Current Visit: Yes Status: Acute (5) Chronic low back pain Current Visit: Yes Status: Chronic Qualifiers: Back pain laterality: bilateral Sciatica presence: without sciatica Qualified Code(s): M54.5 - Low back pain; G89.29 - Other chronic pain (6) Methadone maintenance therapy patient Current Visit: Yes Status: Chronic (7) Nicotine dependence Current Visit: Yes Status: Chronic Qualifiers: Nicotine product type: cigarettes Substance use status: uncomplicated Qualified Code(s): F17.210 - Nicotine dependence, cigarettes, uncomplicated (8) Opioid dependence Current Visit: Yes Status: Chronic (9) PPD positive Current Visit: Yes Status: Chronic (10) Right sided sciatica Current Visit: Yes Status: Chronic (11) Hep C w/o coma, chronic Current Visit: No Status: Chronic - AMA Did Patient Leave Against Medical Advice: Yes
[2017-12-26] MEDS ORDERED: NICOTINE 21 MG/24 HOURS TOPICAL PATCH TD SCH (10:00)
[2017-12-26] MEDS ORDERED: PRENATAL VITAMINS W/ FOLIC ACID TABLET (FP) PO SCH (10:00)
[2017-12-26] MEDS ORDERED: chlordiazePOXIDE HCL 25 MG CAPSULE PO SCH (17:00)
[2017-12-27] MEDS ORDERED: chlordiazePOXIDE 5 MG CAPSULE PO SCH (17:00)
[2017-12-28] MEDS ORDERED: chlordiazePOXIDE HCL 10 MG CAPSULE PO SCH (17:00)
== END 2017-12-26 06:30 | disposition left against medical advice (07) | DRG 770 ==
LOC: YASAS 10:09 → Y3N 11:33
PROVIDERS: ADMIT Surgery; ATTEND Surgery
PROC: HZ2ZZZZ Detoxification Services for Substance Abuse Treatment (ICD-10-PCS; principal; 2017-12-25)
DX: F10.230 Alcohol dependence with withdrawal, uncomplicated (principal); F11.20 Opioid dependence, uncomplicated; F13.230 Sedative, hypnotic or anxiolytic dependence with withdrawal, uncomplicated; F17.210 Nicotine dependence, cigarettes, uncomplicated; F41.8 Other specified anxiety disorders; H60.501 Unspecified acute noninfective otitis externa, right ear; M54.41 Lumbago with sciatica, right side; G89.29 Other chronic pain; R76.11 Nonspecific reaction to tuberculin skin test without active tuberculosis; B18.2 Chronic viral hepatitis C
CPT/HCPCS: 36415; 80053; 81003; 85027; 86593; 93005; 93010

== ENCOUNTER 2018-07-13 08:23 | Inpatient (IN) | payer OTHER ==
[2018-07-13 08:56] VITALS: BMI 33.5
--- NOTE | 2018-07-13 09:47 | HP ---
CIWA Score Nausea/Vomitin Muscle Tremors: 3 Anxiety: 3 Agitation: 2 Paroxysmal Sweats: 1-Minimal Palms Moist Orientation: 0-Oriented Tacttile Disturbances: 1-Very Mild Itch/Numbness Auditory Disturbances: 1-Very Mild Visual Disturbances: 0-None Headache: 2-Mild CIWA-Ar Total Score: 15 - Admission Criteria [facility] Guidelines: Admission for Medically Managed Detox: Requires at least one of the followin. CIWA greater than 12 2. Seizures within the past 24 hours 3. Delirium tremens within the past 24 hours 4. Hallucinations within the past 24 hours 5. Acute intervention needed for co occurring medical disorder 6. Acute intervention needed for co occurring psychiatric disorder 7. Severe withdrawal that cannot be handled at a lower level of care (continued vomiting, continued diarrhea, abnormal vital signs) requiring intravenous medication and/or fluids 8. Patient presents the following: CIWA greater than 12 Admission Criteria Met: Admission criteria met Admission ROS [facility] - HPI Chief Complaint: i need help to stop drinking alcohol,xanax Allergies/Adverse Reactions: Allergies Allergy/AdvReac Type Severity Reaction Status Date / Time No Known Allergies Allergy Verified 07/13/18 09:57 History of Present Illness: this 47 years old male with alcohol and xanax dependence,seeking detox, withdrawal symptom, multiple admissions in detox and rehab,last [facility] 12/25/17 to 12/26/17 not completed mmtp 70 mgs/day,last medicated today hepatitis c treated nicotine dependence 1 pack/day longest period of sobriety 18 months insomnia - Ebola screening Have you traveled outside of the country in the last 21 days: No (N) Have you had contact with anyone from an Ebola affected area: No Have you been sick,other than usual withdrawal symptoms: No Do you have a fever: No - Review of Systems Constitutional: Loss of Appetite, Malaise, Night Sweats, Changes in sleep, Weakness EENT: reports: Nose Congestion Respiratory: reports: No Symptoms reported Cardiac: reports: No Symptoms Reported GI: reports: Nausea, Poor Appetite, Abdominal cramping : reports: No Symptoms Reported Musculoskeletal: reports: Back Pain, Muscle Pain, Other (low back pain scitica) Neuro: reports: Headache, Tremors Endocrine: reports: No Symptoms Reported Hematology: reports: No Symptoms Reported, See HPI, Anemia, Blood Clots, Easy Bleeding Psychiatric: reports: No Sypmtoms Reported, Judgement Intact, Mood/Affect Appropiate, Orientated x3, other (inspmnia) Other Systems: Reviewed and Negative Patient History - Patient Medical History Hx Anemia: No Hx Asthma: No Hx Chronic Obstructive Pulmonary Disease (COPD): No Hx Cancer: No Hx Cardiac Disorders: No Hx Congestive Heart Failure: No Hx Hypertension: No Hx Hypercholesterolemia: No Hx Pacemaker: No HX Cerebrovascular Accident: No Hx Seizures: Yes (last 2008) Hx Dementia: No Hx Diabetes: No Hx Gastrointestinal Disorders: No Hx Liver Disease: No Hx Genitourinary Disorders: No Hx Sexually Transmitted Disorders: No Hx Renal Disease (ESRD): No Hx Thyroid Disease: No Hx Human Immunodeficiency Virus (HIV): No Hx Hepatitis C: Yes (treated and cured) Hx Depression: Yes (anxiety) Hx Suicide Attempt: No Hx Bipolar Disorder: No Hx Schizophrenia: No Other Medical History: no suicidal,no homicidal - Patient Surgical History Past Surgical History: Yes Hx Neurologic Surgery: No Hx Cataract Extraction: No Hx Cardiac Surgery: No Hx Lung Surgery: No Hx Breast Surgery: No Hx Breast Biopsy: No Hx Abdominal Surgery: No Hx Appendectomy: No Hx Cholecystectomy: No Hx Genitourinary Surgery: No Hx Section: No Hx Orthopedic Surgery: No Other Surgical History: tonsillectomy at age 6 Anesthesia Reaction: No - PPD History Previous Implant?: Yes Documented Results: Positive w/o proof Date: 07/15/15 PPD to be Administered?: No - Smoking Cessation Smoking history: Smoker current status UNK Have you smoked in the past 12 months: No Aproximately how many cigarettes per day: 20 Hx Chewing Tobacco Use: No Initiated information on smoking cessation: Yes 'Breaking Loose' booklet given: 07/13/18 - Substance & Tx. History Hx Alcohol Use: Yes Hx Substance Use: Yes Substance Use Type: Alcohol, Tranquilizers Hx Substance Use Treatment: Yes ([facility] 12/25/17 to 12/26/17 not completed) - Substances Abused Alcohol Route: Oral Frequency: Daily Amount used: 1pint of vodka/2 of 6 packs 25 ozs of beer Age of first use: 8 Date of Last Use: 07/13/18 Alprazolam (Xanax) Route: Oral Frequency: 1-3 times last 30 days Amount used: 4 mgs Age of first use: 37 Date of Last Use: 07/07/18 Family Disease History - Family Disease History Family Disease History: Other: Father (, aneurysm of brain), Mother ( living, healthy), Brother (four -one overdose), Daughter (age 8 - no contact) Admission Physical Exam [facility] - Vital Signs Vital Signs: Vital Signs - 24 hr 07/13/18 08:54 Temperature 98.6 F Pulse Rate 95 H Respiratory 18 Rate Blood Pressure 121/85 - Physical General Appearance: Yes: Moderate Distress, Tremorous, Irritable, Sweating, Anxious HEENTM: Yes: Normal ENT Inspection, GRACIELA, Pharynx Normal Respiratory: Yes: Within Normal Limits, Lungs Clear, Normal Breath Sounds Neck: Yes: Within Normal Limits, Supple, Trachea in good position Breast: Yes: Within Normal Limits Cardiology: Yes: Within Normal Limits, Regular Rhythm, Regular Rate, S1, S2 Abdominal: Yes: Within Normal Limits, Normal Bowel Sounds, Non Tender, Flat, Soft Genitourinary: Yes: Within Normal Limits Back: Yes: Muscle Spasm Musculoskeletal: Yes: full range of Motion, Back pain, Muscle Pain Extremities: Yes: Tremors Neurological: Yes: unit secretary II-XII NML intact, Fully Oriented, Alert Integumentary: Yes: Dry Lymphatic: Yes: Within Normal Limits - Diagnostic (1) Sedative dependence Current Visit: No Status: Active (2) Alcohol dependence with uncomplicated withdrawal Current Visit: No Status: Acute (3) Nicotine dependence Current Visit: No Status: Chronic Qualifiers: Nicotine product type: cigarettes Substance use status: uncomplicated Qualified Code(s): F17.210 - Nicotine dependence, cigarettes, uncomplicated (4) Opioid dependence on agonist therapy Current Visit: No Status: Chronic (5) PPD positive Current Visit: No Status: Chronic (6) Right sided sciatica Current Visit: No Status: Chronic (7) syncope alcohol related Current Visit: No Status: Chronic (8) Seizure Current Visit: Yes Status: Acute (9) Insomnia Current Visit: Yes Status: Acute Cleared for Admission [facility] - Detox or Rehab [facility] Level of Care: Medically Managed Detox Regimen/Protocol: Librium [facility] Breath Alcohol Content Breath Alcohol Content: 0.043 Urine Drug Screen - Results Drug Screen Negative: No Urine Drug Screen Results: BZO-Benzodiazepines, MTD-Methadone Inpatient Rehab Admission - Rehab Decision to Admit Inpatient rehab admission?: No
[2018-07-13] MEDS ORDERED: ACETAMINOPHEN 325 MG TABLET (FP) PO PRN (09:57)
[2018-07-13] MEDS ORDERED: IBUPROFEN 400 MG TABLET (FP) PO PRN (09:57)
[2018-07-13] MEDS ORDERED: LOPERAMIDE HCL 2 MG CAPSULE PO PRN (09:57)
[2018-07-13] MEDS ORDERED: P-EPHED 60MG/TRIPROLIDI 2.5MG TABLET PO PRN (09:57)
[2018-07-13] MEDS ORDERED: NICOTINE POLACRILEX 2 MG GUM BC PRN (09:57)
[2018-07-13] MEDS ORDERED: MENTHOL/PHENOL 1 EACH UD MM PRN (09:57)
[2018-07-13] MEDS ORDERED: MAGNESIUM HYDROX 2400MG/30ML ORAL SUSPENSION 30 ML CUP PO PRN (09:57)
[2018-07-13] MEDS ORDERED: MAG HYDROX/AL HYDROX/SIMETH 30 ML UNIT-DOSE CUP PO PRN (09:57)
[2018-07-13] MEDS ORDERED: MAGNESIUM CITRATE 300 ML BOTTLE PO PRN (09:57)
[2018-07-13] MEDS ORDERED: guaiFENesin/D-METHORPHAN HB 10 ML UNIT-DOSE CUPS PO PRN (09:57)
[2018-07-13] MEDS: NICOTINE 21 MG/24 HOURS TOPICAL PATCH TD SCH (11:27)
[2018-07-13] MEDS: PRENATAL VITAMINS W/ FOLIC ACID TABLET (FP) PO SCH (11:27)
[2018-07-13] MEDS: chlordiazePOXIDE HCL 25 MG CAPSULE PO SCH ×3 (11:28→22:23)
[2018-07-13] MEDS: chlordiazePOXIDE HCL 25 MG CAPSULE PO PRN ×2 (14:55→19:14)
[2018-07-13] MEDS: THIAMINE HCL 100 MG TABLET (FP) PO SCH (22:24)
[2018-07-13] MEDS: MELATONIN 5 MG TABLETS PO PRN (22:24)
[2018-07-14] MEDS ORDERED: METHADONE HCL 10 MG TABLET PO SCH (06:00)
[2018-07-14] MEDS ORDERED: METHADONE HCL 40 MG DISPERSABLE TABLET ONE (06:12)
[2018-07-14] MEDS ORDERED: METHADONE HCL 10 MG TABLET ONE (06:12)
[2018-07-14] MEDS: chlordiazePOXIDE HCL 25 MG CAPSULE PO SCH ×4 (06:13→22:55)
[2018-07-14] MEDS: METHADONE 40 MG, METHADONE 30 MG PO SCH (06:13)
[2018-07-14] MEDS: chlordiazePOXIDE HCL 25 MG CAPSULE PO PRN ×3 (08:57→20:14)
[2018-07-14] MEDS: NICOTINE 21 MG/24 HOURS TOPICAL PATCH TD SCH (10:17)
[2018-07-14] MEDS: PRENATAL VITAMINS W/ FOLIC ACID TABLET (FP) PO SCH (10:18)
[2018-07-14 10:34] LABS: HEMATOCRIT 45.9 % (35.4-49); HEMOGLOBIN 15.7 GM/dL (11.7-16.9); MCH 29.8 pg (25.7-33.7); MCHC 34.2 g/dl (32.0-35.9); MEAN PLT VOLUME 8.5 fl (7.5-11.1); PLATELET COUNT 306 K/MM3 (134-434); RBC 5.27 M/mm3 (4.00-5.60); RDW 13.5 % (11.9-15.9); WHITE BLOOD COUNT 11.1 K/mm3 (4.0-10.0)
[2018-07-14 11:04] LABS: ALBUMIN 4.1 g/dl (3.4-5.0); ALK PHOS 103 U/L (45-117); ANION GAP 9 MMOL/L (8-16); BILIRUBIN,TOTAL 0.6 mg/dL (0.2-1); BLOOD UREA NITROGEN 15 mg/dL (7-18); CALCIUM 8.8 mg/dL (8.5-10.1); CHLORIDE 101 mmol/L (98-107); CO2 24 mmol/L (21-32); GLUCOSE,RANDOM 85 mg/dL (74-106); POTASSIUM 3.9 mmol/L (3.5-5.1); SGOT/AST 16 U/L (15-37); SGPT/ALT 28 U/L (13-61); SODIUM 134 mmol/L (136-145); TOT PROT 7.8 g/dl (6.4-8.2)
[2018-07-14] MEDS: hydrOXYzine PAMOATE 50 MG CAPSULE (FP) PO PRN ×2 (13:34→22:55)
--- NOTE | 2018-07-14 13:53 | PN ---
[facility] CIWA - CIWA Score Nausea/Vomitin-No Nausea/No Vomiting Muscle Tremors: 2 Anxiety: 5 Agitation: 4-Moderately Restless Paroxysmal Sweats: 2 Orientation: 0-Oriented Tacttile Disturbances: 0-None Auditory Disturbances: 0-None Visual Disturbances: 0-None Headache: 2-Mild CIWA-Ar Total Score: 15 [facility] Progress Note (SOAP) Subjective: PT C/P ANXIETY,RESTLESSNESS, HEADACHE,SWEATS, PANIC ATTACKS, INSOMNIA. WOULD LIKE TO SEE PSYCH CONSULT. Objective: 07/14/18 13:51 Vital Signs 07/14/18 07/14/18 06:00 10:03 Temperature 97.5 F L 97.9 F Pulse Rate 60 86 Respiratory 20 16 Rate Blood Pressure 105/59 L 132/80 Laboratory Tests 07/13/18 07/14/18 07/14/18 11:15 05:35 05:35 WBC 11.1 H RBC 5.27 Hgb 15.7 Hct 45.9 MCV 87.0 MCH 29.8 MCHC 34.2 RDW 13.5 Plt Count 306 MPV 8.5 Sodium 134 L Potassium 3.9 Chloride 101 Carbon Dioxide 24 Anion Gap 9 BUN 15 Creatinine 1.0 Creat Clearance w eGFR > 60 Random Glucose 85 Calcium 8.8 Total Bilirubin 0.6 AST 16 ALT 28 Alkaline Phosphatase 103 Total Protein 7.8 Albumin 4.1 RPR Titer HIV 1&2 Antibody Screen Negative HIV P24 Antigen Negative 07/14/18 05:35 WBC RBC Hgb Hct MCV MCH MCHC RDW Plt Count MPV Sodium Potassium Chloride Carbon Dioxide Anion Gap BUN Creatinine Creat Clearance w eGFR Random Glucose Calcium Total Bilirubin AST ALT Alkaline Phosphatase Total Protein Albumin RPR Titer Nonreactive HIV 1&2 Antibody Screen HIV P24 Antigen Assessment: 07/14/18 13:52 WITHDRAWAL SX Plan: CONTINUE DETOX PSYCH CONSULT TODAY
[2018-07-14] MEDS: THIAMINE HCL 100 MG TABLET (FP) PO SCH (22:55)
[2018-07-14] MEDS: MELATONIN 5 MG TABLETS PO PRN (22:56)
[2018-07-15] MEDS ORDERED: METHADONE HCL 40 MG DISPERSABLE TABLET ONE (06:11)
[2018-07-15] MEDS ORDERED: METHADONE HCL 10 MG TABLET ONE (06:11)
[2018-07-15] MEDS: METHADONE 40 MG, METHADONE 30 MG PO SCH (06:14)
[2018-07-15] MEDS: chlordiazePOXIDE HCL 25 MG CAPSULE PO SCH (06:14)
[2018-07-15] MEDS: NICOTINE 21 MG/24 HOURS TOPICAL PATCH TD SCH (09:40)
[2018-07-15] MEDS: hydrOXYzine PAMOATE 50 MG CAPSULE (FP) PO PRN ×2 (09:41→22:45)
[2018-07-15] MEDS: PRENATAL VITAMINS W/ FOLIC ACID TABLET (FP) PO SCH (09:41)
[2018-07-15] MEDS: chlordiazePOXIDE 5 MG CAPSULE PO SCH ×3 (10:22→22:44)
[2018-07-15] MEDS: BACITRACIN 0.9 GM PACKET TP SCH ×2 (12:31→22:45)
[2018-07-15] MEDS: chlordiazePOXIDE HCL 25 MG CAPSULE PO PRN ×2 (14:31→20:37)
--- NOTE | 2018-07-15 16:38 | PN ---
S CIWA - CIWA Score Nausea/Vomitin Muscle Tremors: 4-Moderate,w/Arms Extend Anxiety: 4-Mod. Anxious/Guarded Agitation: 4-Moderately Restless Paroxysmal Sweats: 3 Orientation: 0-Oriented Tacttile Disturbances: 0-None Auditory Disturbances: 0-None Visual Disturbances: 0-None Headache: 0-None Present CIWA-Ar Total Score: 17 [facility] Progress Note (SOAP) Subjective: Chills, sweating, diarrhea, tremor, interrupted sleep, anxious. Patient requesting bacitracin for abrasions on left leg stating that he kept picking off the scabs. Objective: 07/15/18 16:34 Last Vital Signs Temp Pulse Resp BP Pulse Ox 97.5 F L 78 18 138/73 07/15/18 13:29 07/15/18 13:29 07/15/18 13:29 07/15/18 13:29 Laboratory Tests 07/13/18 07/14/18 07/14/18 11:15 05:35 05:35 WBC 11.1 H RBC 5.27 Hgb 15.7 Hct 45.9 MCV 87.0 MCH 29.8 MCHC 34.2 RDW 13.5 Plt Count 306 MPV 8.5 Sodium 134 L Potassium 3.9 Chloride 101 Carbon Dioxide 24 Anion Gap 9 BUN 15 Creatinine 1.0 Creat Clearance w eGFR > 60 Random Glucose 85 Calcium 8.8 Total Bilirubin 0.6 AST 16 ALT 28 Alkaline Phosphatase 103 Total Protein 7.8 Albumin 4.1 RPR Titer HIV 1&2 Antibody Screen Negative HIV P24 Antigen Negative 07/14/18 05:35 WBC RBC Hgb Hct MCV MCH MCHC RDW Plt Count MPV Sodium Potassium Chloride Carbon Dioxide Anion Gap BUN Creatinine Creat Clearance w eGFR Random Glucose Calcium Total Bilirubin AST ALT Alkaline Phosphatase Total Protein Albumin RPR Titer Nonreactive HIV 1&2 Antibody Screen HIV P24 Antigen Labs reviewed: wbc 11.1 Assessment: 07/15/18 16:35 Withdrawal symptoms Noted with leukocytosis Plan: Continue detox Encouraged PO water hydration Leukocytosis: asymptomatic, repeat CBC, admission UA in AM
[2018-07-15] MEDS: THIAMINE HCL 100 MG TABLET (FP) PO SCH (22:45)
[2018-07-15] MEDS: MELATONIN 5 MG TABLETS PO PRN (22:47)
[2018-07-16] MEDS ORDERED: METHADONE HCL 40 MG DISPERSABLE TABLET ONE (02:30)
[2018-07-16] MEDS ORDERED: METHADONE HCL 10 MG TABLET ONE (02:30)
[2018-07-16] MEDS: chlordiazePOXIDE 5 MG CAPSULE PO SCH (06:06)
[2018-07-16] MEDS: METHADONE 40 MG, METHADONE 30 MG PO SCH (06:11)
--- NOTE | 2018-07-16 08:03 | CONSULT ---
[facility] Psychiatric Consult - Data Date of interview: 07/16/18 Admission source: [facility] Identifying data: This is a 47 years old male, gather of two, living with a family, unemployed, with no financial report, with psycvhiatric hospitalization history, history of [place] Disorder, with alcohol, opioids, xanax, nicotine dependence, is here reporting withdrawal symptoms and seeking detox,. Patiebt is currently on MMTO 70mg /day Substance Abuse History: Smoking history: Smoker current status UNK. Have you smoked in the past 12 months: No. Aproximately how many cigarettes per day: 20. Hx Chewing Tobacco Use: No. Initiated information on smoking cessation: Yes. 'Breaking Loose' booklet given: 07/13/18. - Substance & Tx. History. Hx Alcohol Use: Yes. Hx Substance Use: Yes. Substance Use Type: Alcohol, Tranquilizers. Hx Substance Use Treatment: Yes ([facility] 12/25/17 to 12/26/17 not completed). - Substances Abused. Alcohol. Route: Oral. Frequency: Daily. Amount used: 1pint of vodka/2 of 6 packs 25 ozs of beer. Age of first use: 8. Date of Last Use: 07/13/18. Alprazolam (Xanax). Route: Oral. Frequency : 1-3 times last 30 days. Amount used: 4 mgs. Age of first use: 37. Date of Last Use: 07/07/18 Medical History: Syncope history, Seizure history, Weight loss history,PPD + history, LBP, HepC+, MMTP 70 mg/day Psychiatric History: Patient reports tomelissa the lost recent psychoatric admission ar [facility] for safety on about 1,5 years ago. Denies suicidal, hopmicidal history, reports taking prior to admission: Seroquel 100mg po qhs Physical/Sexual Abuse/Trauma History: Denies Additional Comment: Seroquel 100mg po qhs Mental Status Exam - Mental Status Exam Alert and Oriented to: Person Cognitive Function: Fair Patient Appearance: Unkempt Mood: Sad Affect: Flat Patient Behavior: Sedated Speech Pattern: Delayed Voice Loudness: Mildly Soft/Quiet Thought Process: Circumstantial, Goal Oriented Thought Disorder: Being Controlled Hallucinations: Denies Suicidal Ideation: Denies Homicidal Ideation: Denies Insight/Judgement: Fair Sleep: Difficulty falling asleep Appetite: Weight loss Muscle strength/Tone: Mild Hypotonicity Gait/Station: Shuffling Additional Comments: Seroquel 100mg po qhs Psychiatric Findings - Problem List ([place] 1, 2,3) (1) Seizure Current Visit: Yes Status: Acute (2) Sedative dependence Current Visit: No Status: Active (3) insomnia Current Visit: No Status: Active (4) weight loss Current Visit: No Status: Active (5) Alcohol dependence with uncomplicated withdrawal Current Visit: No Status: Acute (6) Anxiety and depression Current Visit: No Status: Acute (7) Heroin abuse Current Visit: No Status: Acute (8) Substance-induced sleep disorder Current Visit: No Status: Acute (9) Uncomplicated sedative, hypnotic or anxiolytic withdrawal Current Visit: No Status: Acute (10) Hepatitis C antibody positive in blood Current Visit: No Status: Chronic Comment: completed treatment (11) Nicotine dependence Current Visit: No Status: Chronic Qualifiers: Nicotine product type: cigarettes Substance use status: uncomplicated Qualified Code(s): F17.210 - Nicotine dependence, cigarettes, uncomplicated (12) Opioid dependence Current Visit: No Status: Chronic (13) Opioid dependence on agonist therapy Current Visit: No Status: Chronic (14) PPD positive Current Visit: No Status: Chronic (15) syncope alcohol related Current Visit: No Status: Chronic - Initial Treatment Plan Initial Treatment Plan: Seroquel 100mg po qhs
[2018-07-16] MEDS: chlordiazePOXIDE HCL 25 MG CAPSULE PO PRN (09:10)
[2018-07-16 10:08] LABS: BASO % 0.5 % (0-2.0); EOS % 3.7 % (0-4.5); HEMATOCRIT 43.9 % (35.4-49); HEMOGLOBIN 15.2 GM/dL (11.7-16.9); LYMPH % 32.7 % (8-40); MCH 30.4 pg (25.7-33.7); MCHC 34.6 g/dl (32.0-35.9); MEAN PLT VOLUME 8.2 fl (7.5-11.1); MONO % 11.2 % (3.8-10.2); NEUT % 51.9 % (42.8-82.8); PLATELET COUNT 247 K/MM3 (134-434); RBC 4.99 M/mm3 (4.00-5.60); RDW 13.2 % (11.9-15.9); WHITE BLOOD COUNT 6.7 K/mm3 (4.0-10.0)
[2018-07-16 10:19] LABS: URINE APPEARANCE CLEAR; URINE BILIRUBIN NEGATIVE (<2.0 mg/dL); URINE COLOR LTYELLOW; URINE GLUCOSE (UA) NEGATIVE (NEGATIVE); URINE KETONE NEGATIVE (NEGATIVE); URINE LEUK ESTERASE NEGATIVE (NEGATIVE); URINE NITRITE NEGATIVE (NEGATIVE); URINE PROTEIN NEGATIVE (NEGATIVE); URINE UROBILINOGEN NEGATIVE mg/dL (0.2-1.0)
[2018-07-16] MEDS: NICOTINE 21 MG/24 HOURS TOPICAL PATCH TD SCH (10:47)
[2018-07-16] MEDS: PRENATAL VITAMINS W/ FOLIC ACID TABLET (FP) PO SCH (10:47)
[2018-07-16] MEDS: chlordiazePOXIDE HCL 10 MG CAPSULE PO SCH ×3 (10:47→23:16)
[2018-07-16] MEDS: BACITRACIN 0.9 GM PACKET TP SCH ×2 (10:47→23:15)
[2018-07-16] MEDS: hydrOXYzine PAMOATE 50 MG CAPSULE (FP) PO PRN ×2 (13:48→20:02)
--- NOTE | 2018-07-16 13:49 | PN ---
[facility] Progress Note (SOAP) Subjective: SHAKES SWEATS SLEEP DISTURBANCE Objective: 07/16/18 13:42 A & O X 3 AMBULATING STEADILY ON UNIT NO DISTRESS NOTED Vital Signs Temperature 97.9 F 07/16/18 09:14 Pulse Rate 86 07/16/18 09:14 Respiratory Rate 18 07/16/18 09:14 Blood Pressure 129/76 07/16/18 09:14 O2 Sat by Pulse Oximetry (%) Assessment: 07/16/18 13:44 WITHDRAWAL SX Plan: CONTINUE DETOX
--- NOTE | 2018-07-16 17:27 | PN ---
[facility] Progress Note Note: Vital Signs Temperature 96.4 F L 07/16/18 17:20 Pulse Rate 77 07/16/18 17:20 Respiratory Rate 18 07/16/18 17:20 Blood Pressure 135/73 07/16/18 17:20 O2 Sat by Pulse Oximetry (%) Patient requested d/c at 6am rather than 8am. D/c order updated for 6am tomorrow.
[2018-07-16] MEDS ORDERED: QUEtiapine FUMARATE 100 MG TABLET (FP) PO SCH (22:00)
[2018-07-16] MEDS: THIAMINE HCL 100 MG TABLET (FP) PO SCH (23:16)
[2018-07-17] MEDS ORDERED: METHADONE HCL 40 MG DISPERSABLE TABLET ONE (05:39)
[2018-07-17] MEDS ORDERED: METHADONE HCL 10 MG TABLET ONE (05:39)
[2018-07-17] MEDS: chlordiazePOXIDE HCL 10 MG CAPSULE PO SCH (05:40)
[2018-07-17] MEDS: METHADONE 40 MG, METHADONE 30 MG PO SCH (05:40)
[2018-07-17 07:08] VITALS: BP 139/68; PULSE 82; TEMP 96.1
--- NOTE | 2018-07-17 13:54 | DS ---
[facility] Detox Discharge Summary Admission Date: 07/13/18 Discharge Date: 07/17/18 - History Present History: Alcohol Dependence, Opioid Dependence, Sedative Dependence, MMTP Additional Comments: PATIENT LEFT DETOX UNIT EARLY IN AM PRIOR TO TIME OF ARRIVAL OF PUBLIC HEALTH PROGRAM MANAGER ON DETOX UNIT. THUS, PRE-DISCHARGE MEDICAL ASSESSMENT UNABLE TO BE DONE. PUBLIC HEALTH PROGRAM MANAGER RECEIVED NOTICE FROM PATIENT'S INSTRUMENT OPERATOR, Precious TITUS, THAT PATIENT WILL BE RETURNING TO [facility] ([place], [place]), WHERE HE WAS PREVIOUSLY A CLIENT, FOR AFTERCARE. PATIENT HAD ALSO BEEN GIVEN A REFERRAL TO [facility] INTENS[facility] OUTPATIENT [facility] ([place], [place]) FOR AFTERCARE. PATIENT ALSO PREVIOUSLY ADVISED TO CONSIDER LOCAL 12 STEP/ NA/AA OUTPATIENT SUPPORT GROUPS FOR AFTERCARE. Pertinent Past History: Nicotine Dependence, History of Insomnia, History of Seizure, History Of Right- Sided Sciatica, History of Depression, Anxiety, History of Hep C, M.M.T.P., History Of Positive PPD, History Of Syncope (Alcohol-Related). - Physical Exam Results Vital Signs: Vital Signs Temperature 96.1 F L 07/17/18 07:07 Pulse Rate 82 07/17/18 07:07 Respiratory Rate 20 07/17/18 07:07 Blood Pressure 139/68 07/17/18 07:07 O2 Sat by Pulse Oximetry (%) Pertinent Admission Physical Exam Findings: WITHDRAWAL SYMPTOMS. Laboratory Tests 07/13/18 07/14/18 07/14/18 11:15 05:35 05:35 WBC 11.1 H RBC 5.27 Hgb 15.7 Hct 45.9 MCV 87.0 MCH 29.8 MCHC 34.2 RDW 13.5 Plt Count 306 MPV 8.5 Absolute Neuts (auto) Neutrophils % Lymphocytes % Monocytes % Eosinophils % Basophils % Nucleated RBC % Sodium 134 L Potassium 3.9 Chloride 101 Carbon Dioxide 24 Anion Gap 9 BUN 15 Creatinine 1.0 Creat Clearance w eGFR > 60 Random Glucose 85 Calcium 8.8 Total Bilirubin 0.6 AST 16 ALT 28 Alkaline Phosphatase 103 Total Protein 7.8 Albumin 4.1 Urine Color Urine Appearance Urine pH Ur Specific Holstein Urine Protein Urine Glucose (UA) Urine Ketones Urine Blood Urine Nitrite Urine Bilirubin Urine Urobilinogen Ur Leukocyte Esterase RPR Titer HIV 1&2 Antibody Screen Negative HIV P24 Antigen Negative 07/14/18 07/16/18 07/16/18 05:35 07:30 07:40 WBC 6.7 RBC 4.99 Hgb 15.2 Hct 43.9 MCV 88.0 MCH 30.4 MCHC 34.6 RDW 13.2 Plt Count 247 MPV 8.2 Absolute Neuts (auto) 3.5 Neutrophils % 51.9 Lymphocytes % 32.7 Monocytes % 11.2 H Eosinophils % 3.7 Basophils % 0.5 Nucleated RBC % 0 Sodium Potassium Chloride Carbon Dioxide Anion Gap BUN Creatinine Creat Clearance w eGFR Random Glucose Calcium Total Bilirubin AST ALT Alkaline Phosphatase Total Protein Albumin Urine Color Ltyellow Urine Appearance Clear Urine pH 5.0 Ur Specific [place]stein 1.014 Urine Protein Negative Urine Glucose (UA) Negative Urine Ketones Negative Urine Blood Negative Urine Nitrite Negative Urine Bilirubin Negative Urine Urobilinogen Negative Ur Leukocyte Esterase Negative RPR Titer Nonreactive HIV 1&2 Antibody Screen HIV P24 Antigen LABS NOTED. - Treatment Hospital Course: Detox Protocol Followed, Detoxed Safely, Responded well, Discharged Condition Good Patient has Accepted a Rehab Referral to: PT. RETURNING TO [facility]; ALSO REFERRED TO [facility] - Medication Discharge Medications: Ambulatory Orders Methadone [Dolophine -] 70 mg PO DAILY 07/13/18 Quetiapine Fumarate [Seroquel] 100 mg PO HS #30 tablet 07/16/18 - Diagnosis (1) insomnia Status: Active (2) weight loss Status: Active (3) Alcohol dependence with uncomplicated withdrawal Status: Acute (4) Anxiety and depression Status: Acute (5) Insomnia Status: Acute Qualifiers: Insomnia type: unspecified Qualified Code(s): G47.00 - Insomnia, unspecified (6) Seizure Status: Acute (7) Substance-induced sleep disorder Status: Acute (8) Uncomplicated sedative, hypnotic or anxiolytic withdrawal Status: Acute (9) Hepatitis C antibody positive in blood Status: Chronic (10) Methadone maintenance therapy patient Status: Chronic (11) Nicotine dependence Status: Chronic Qualifiers: Nicotine product type: cigarettes Substance use status: uncomplicated Qualified Code(s): F17.210 - Nicotine dependence, cigarettes, uncomplicated (12) Opioid dependence on agonist therapy Status: Chronic (13) PPD positive Status: Chronic (14) Right sided sciatica Status: Chronic (15) syncope alcohol related Status: Chronic - AMA Did Patient Leave Against Medical Advice: No
== END 2018-07-17 06:25 | disposition home or self-care (01) | DRG 773 ==
LOC: YASAS 08:23 → Y6N 10:07
PROVIDERS: ADMIT Surgery; ATTEND Surgery
PROC: HZ2ZZZZ Detoxification Services for Substance Abuse Treatment (ICD-10-PCS; principal; 2018-07-13)
DX: F10.230 Alcohol dependence with withdrawal, uncomplicated (principal); F11.20 Opioid dependence, uncomplicated; F13.230 Sedative, hypnotic or anxiolytic dependence with withdrawal, uncomplicated; F17.210 Nicotine dependence, cigarettes, uncomplicated; F41.9 Anxiety disorder, unspecified; F32.9 Major depressive disorder, single episode, unspecified; F19.282 Other psychoactive substance dependence with psychoactive substance-induced sleep disorder; G47.00 Insomnia, unspecified; R76.11 Nonspecific reaction to tuberculin skin test without active tuberculosis; M54.31 Sciatica, right side; Z86.69 Personal history of other diseases of the nervous system and sense organs
CPT/HCPCS: 36415; 71045-TC-FY; 80053; 81003; 85025; 85027; 86593; 87389

== ENCOUNTER 2018-12-14 09:29 | Inpatient (IN) | payer OTHER ==
[2018-12-14 10:35] VITALS: BMI 33.7
--- NOTE | 2018-12-14 11:26 | HP ---
CIWA Score Nausea/Vomitin Muscle Tremors: 2 Anxiety: 3 Agitation: 3 Paroxysmal Sweats: 1-Minimal Palms Moist Orientation: 0-Oriented Tacttile Disturbances: 0-None Auditory Disturbances: 0-None Visual Disturbances: 0-None Headache: 3-Moderate CIWA-Ar Total Score: 15 - Admission Criteria OASAS Guidelines: Admission for Medically Managed Detox: Requires at least one of the followin. CIWA greater than 12 2. Seizures within the past 24 hours 3. Delirium tremens within the past 24 hours 4. Hallucinations within the past 24 hours 5. Acute intervention needed for co occurring medical disorder 6. Acute intervention needed for co occurring psychiatric disorder 7. Severe withdrawal that cannot be handled at a lower level of care (continued vomiting, continued diarrhea, abnormal vital signs) requiring intravenous medication and/or fluids 8. Admission ROS [facility] Chief Complaint: seeking help for alcohol and xanax use Allergies/Adverse Reactions: Allergies Allergy/AdvReac Type Severity Reaction Status Date / Time No Known Allergies Allergy Verified 12/14/18 10:01 History of Present Illness: 48 y/o/m here for alcohol and xanax use. He was last here in June for detox and relapsed 2 months after being discharged. He has been drinking a 15 pack of 12oz cans daily. He sometimes drinks a quart of vodka instead of the beer. He denies any history of blackouts or seizures. His last drink was prior to arrival here. He is using 6-12mg of Xanax daily. He is buying Xanax off the streets, last use last night. He has been using the Xanax on and off for the last 4 years. He is in [facility]one program, his dose is 70mg and he received his dose today. He smokes a pack a day of cigarettes. He lives with family and is currently unemployed. He has not used cocaine in 7 years and has not used heroin in 2 years. PMHx: PTSD. +PPD, treated, sciatica Medications: Methadone 70mg Surgical Hx: tonsillectomy Allergies: denies - Ebola screening Have you traveled outside of the country in the last 21 days: No Have you had contact with anyone from an Ebola affected area: No Do you have a fever: No - Review of Systems Constitutional: Chills, Loss of Appetite EENT: reports: Nose Congestion Respiratory: reports: Cough Cardiac: reports: No Symptoms Reported GI: reports: Nausea, Abdominal cramping Musculoskeletal: reports: Back Pain Neuro: reports: Headache, Tremors Psychiatric: reports: Agitated, Anxious Patient History - Patient Medical History Hx Anemia: No Hx Asthma: No Hx Chronic Obstructive Pulmonary Disease (COPD): No Hx Cancer: No Hx Cardiac Disorders: No Hx Congestive Heart Failure: No Hx Hypertension: No Hx Hypercholesterolemia: No Hx Pacemaker: No HX Cerebrovascular Accident: No Hx Seizures: No Hx Dementia: No Hx Diabetes: No Hx Gastrointestinal Disorders: No Hx Liver Disease: No Hx Genitourinary Disorders: No Hx Sexually Transmitted Disorders: No Hx Renal Disease (ESRD): No Hx Thyroid Disease: No Hx Human Immunodeficiency Virus (HIV): No Hx Hepatitis C: Yes (treated and cured) Hx Depression: Yes (anxiety) Hx Suicide Attempt: No Hx Bipolar Disorder: No Hx Schizophrenia: No Other Medical History: no suicidal or homicidal ideations - Patient Surgical History Past Surgical History: Yes Hx Neurologic Surgery: No Hx Cataract Extraction: No Hx Cardiac Surgery: No Hx Lung Surgery: No Hx Breast Surgery: No Hx Breast Biopsy: No Hx Abdominal Surgery: No Hx Appendectomy: No Hx Cholecystectomy: No Hx Genitourinary Surgery: No Hx Section: No Hx Orthopedic Surgery: No Other Surgical History: tonsillectomy at age 6 Anesthesia Reaction: No - PPD History Previous Implant?: Yes Documented Results: Positive w/o proof - Smoking Cessation Smoking history: Current every day smoker Have you smoked in the past 12 months: No Aproximately how many cigarettes per day: 20 Hx Chewing Tobacco Use: No Initiated information on smoking cessation: Yes 'Breaking Loose' booklet given: 12/14/18 - Substance & Tx. History Hx Alcohol Use: Yes Substance Use Type: Alcohol - Substances abused Alprazolam (Xanax) Substance route: Oral Frequency: Daily Amount used: 6- 12MG Age of first use: 43 Date of last use: 12/13/18 Alcohol Substance route: Oral Frequency: Daily Amount used: 6X12 0Z BEER, 1/4 QUARTER Vodka Age of first use: 11 Date of last use: 12/13/18 Family Disease History - Family Disease History Family Disease History: Other: Father (, aneurysm of brain), Mother ( living, healthy), Brother (four -one overdose), Daughter (age 8 - no contact) Admission Physical Exam [facility] - Vital Signs Vital Signs: Vital Signs - 24 hr 12/14/18 10:24 Temperature 97.4 F L Pulse Rate 84 Respiratory 18 Rate Blood Pressure 120/70 - Physical General Appearance: Yes: Mild Distress HEENTM: Yes: EOMI, Normocephalic Respiratory: Yes: Lungs Clear, Normal Breath Sounds, No Accessory Muscle Use Neck: Yes: Supple Cardiology: Yes: Regular Rhythm, Regular Rate, S1, S2 Abdominal: Yes: Normal Bowel Sounds, Soft Musculoskeletal: Yes: Gait Steady Extremities: Yes: Normal Capillary Refill, Tremors, Swelling (2+ non pitting edema of bilateral ankles) Neurological: Yes: Fully Oriented, Alert, Motor Strength 5/5 Integumentary: Yes: Dry - Diagnostic (1) Alcohol use disorder Current Visit: Yes Status: Acute (2) Moderate benzodiazepine use disorder Current Visit: Yes Status: Acute (3) Methadone maintenance therapy patient Current Visit: No Status: Chronic Comment: [facility] - 80mg Cleared for Admission [facility] - Detox or Rehab [facility] Level of Care: Medically Managed Detox Regimen/Protocol: Librium Breathalyzer - Breathalyzer Breathalyzer: 0.005 Urine Drug Screen - Test Device Lot number: [id number] Expiration date: 09/19/19 - Control Is test valid?: Yes - Results Drug screen NEGATIVE: No Urine drug screen results: MTD-Methadone, BZO-Benzodiazepines Inpatient Rehab Admission - Rehab Decision to Admit Inpatient rehab admission?: No
[2018-12-14] MEDS ORDERED: BISMUTH SUBSALICYLATE 262 MG/15 ML BTL PO PRN (11:44)
[2018-12-14] MEDS ORDERED: IBUPROFEN 400 MG TABLET (FP) PO PRN (11:44)
[2018-12-14] MEDS ORDERED: MAGNESIUM CITRATE 300 ML BOTTLE PO PRN (11:44)
[2018-12-14] MEDS ORDERED: MAG HYDROX/AL HYDROX/SIMETH 30 ML UNIT-DOSE CUP PO PRN (11:44)
[2018-12-14] MEDS ORDERED: ACETAMINOPHEN 325 MG TABLET (FP) PO PRN ×2 (11:44)
[2018-12-14] MEDS ORDERED: MAGNESIUM HYDROX 2400MG/30ML ORAL SUSPENSION 30 ML CUP PO PRN (11:44)
[2018-12-14] MEDS: NICOTINE 14 MG/24 HOURS TOPICAL PATCH TD SCH (13:04)
[2018-12-14] MEDS: chlordiazePOXIDE HCL 25 MG CAPSULE PO PRN ×2 (13:04→19:43)
[2018-12-14] MEDS: hydrOXYzine HCL 25 MG TABLET (FP) PO PRN (14:46)
[2018-12-14] MEDS: METHOCARBAMOL 500 MG TABLET PO PRN (14:46)
[2018-12-14 15:44] LABS: HEMATOCRIT 46.5 % (35.4-49); HEMOGLOBIN 15.4 GM/dL (11.7-16.9); MCH 29.1 pg (25.7-33.7); MCHC 33.1 g/dl (32.0-35.9); MEAN CELL VOLUME 87.9 fl (80-96); MEAN PLT VOLUME 8.4 fl (7.5-11.1); PLATELET COUNT 337 K/MM3 (134-434); RBC 5.29 M/mm3 (4.00-5.60); RDW 13.9 % (11.9-15.9); WHITE BLOOD COUNT 10.2 K/mm3 (4.0-10.0)
[2018-12-14 15:56] LABS: ALBUMIN 3.9 g/dl (3.4-5.0); BILIRUBIN,TOTAL 0.3 mg/dL (0.2-1); BLOOD UREA NITROGEN 10.2 mg/dL (7-18); CALCIUM 9.1 mg/dL (8.5-10.1); POTASSIUM 4.5 mmol/L (3.5-5.1); TOT PROT 7.5 g/dl (6.4-8.2)
[2018-12-14] MEDS: chlordiazePOXIDE HCL 25 MG CAPSULE PO SCH ×2 (17:15→22:05)
[2018-12-14] MEDS: THIAMINE HCL 100 MG TABLET (FP) PO SCH (22:04)
[2018-12-14] MEDS: CLOTRIMAZOLE 1% CREAM 15 GM TUBE TP SCH (22:04)
[2018-12-14] MEDS: MELATONIN 5 MG TABLETS PO PRN (22:05)
[2018-12-15] MEDS ORDERED: METHADONE HCL 10 MG TABLET ONE (04:03)
[2018-12-15] MEDS ORDERED: METHADONE HCL 40 MG DISPERSABLE TABLET ONE (04:04)
[2018-12-15] MEDS: METHADONE 40 MG, METHADONE 30 MG PO SCH (05:47)
[2018-12-15] MEDS: chlordiazePOXIDE HCL 25 MG CAPSULE PO SCH ×4 (05:47→22:05)
[2018-12-15] MEDS ORDERED: METHADONE HCL 10 MG TABLET PO SCH (06:00)
[2018-12-15] MEDS ORDERED: METHADONE HCL 40 MG DISPERSABLE TABLET PO SCH (10:00)
[2018-12-15] MEDS: NICOTINE 14 MG/24 HOURS TOPICAL PATCH TD SCH (10:02)
[2018-12-15] MEDS: PRENATAL VITAMINS W/ FOLIC ACID TABLET (FP) PO SCH (10:02)
[2018-12-15] MEDS: CLOTRIMAZOLE 1% CREAM 15 GM TUBE TP SCH ×2 (10:03→22:05)
[2018-12-15] MEDS ORDERED: PROCHLORPERAZINE MALEATE 5 MG TABLET PO PRN (11:52)
--- NOTE | 2018-12-15 12:15 | PN ---
S CIWA - CIWA Score Nausea/Vomitin Muscle Tremors: 3 Anxiety: 4-Mod. Anxious/Guarded Agitation: 3 Paroxysmal Sweats: No Perspiration Orientation: 0-Oriented Tacttile Disturbances: 2-Mild Itch/Numbness/Burn Auditory Disturbances: 0-None Visual Disturbances: 0-None Headache: 0-None Present CIWA-Ar Total Score: 15 [facility] Progress Note (SOAP) Subjective: Tremors, Anxious, Nausea, Diarrhea. Objective: PATIENT A & O X 3, OBSERVED AMBULATING ON UNIT UNASSISTED. IN NO ACUTE DISTRESS. 12/15/18 12:14 Vital Signs Temperature 97.0 F L 12/15/18 09:05 Pulse Rate 82 12/15/18 09:05 Respiratory Rate 18 12/15/18 09:05 Blood Pressure 123/83 12/15/18 09:05 O2 Sat by Pulse Oximetry (%) Laboratory Tests 12/14/18 12/14/18 12/14/18 11:40 11:40 11:40 WBC 10.2 H RBC 5.29 Hgb 15.4 Hct 46.5 MCV 87.9 MCH 29.1 MCHC 33.1 RDW 13.9 Plt Count 337 D MPV 8.4 Sodium 139 Potassium 4.5 Chloride 104 Carbon Dioxide 28 Anion Gap 6 L BUN 10.2 Creatinine 1.0 Est GFR (CKD-EPI)AfAm 101.98 Est GFR (CKD-EPI)NonAf 87.99 Random Glucose 112 H Calcium 9.1 Total Bilirubin 0.3 AST 21 ALT 42 Alkaline Phosphatase 104 Total Protein 7.5 Albumin 3.9 RPR Titer Nonreactive LABS NOTED. NO RECENT HISTORY OF INTRAVENOUS DRUG USE REPORTED BY PATIENT ON DETOX ADMISSION. 12/15/18 12:16 Assessment: 12/15/18 12:14 WITHDRAWAL SYMPTOMS. Plan: PATIENT CONTINUE DETOX. INCREASE DAILY PO WATER INTAKE.
[2018-12-15] MEDS: chlordiazePOXIDE HCL 25 MG CAPSULE PO PRN (14:08)
[2018-12-15] MEDS: THIAMINE HCL 100 MG TABLET (FP) PO SCH (22:05)
[2018-12-15] MEDS: MELATONIN 5 MG TABLETS PO PRN (22:05)
[2018-12-15] MEDS: MENTHOL/PHENOL 1 EACH UD MM PRN (22:06)
[2018-12-16] MEDS ORDERED: METHADONE HCL 10 MG TABLET ONE (04:02)
[2018-12-16] MEDS ORDERED: METHADONE HCL 40 MG DISPERSABLE TABLET ONE (04:03)
[2018-12-16] MEDS: METHADONE 40 MG, METHADONE 30 MG PO SCH (05:44)
[2018-12-16] MEDS: chlordiazePOXIDE HCL 25 MG CAPSULE PO SCH ×4 (05:44→22:03)
[2018-12-16] MEDS: chlordiazePOXIDE HCL 25 MG CAPSULE PO PRN ×2 (07:31→12:17)
--- NOTE | 2018-12-16 09:09 | PN ---
[facility] CIWA - CIWA Score Nausea/Vomitin-Mild Nausea/No Vomiting Muscle Tremors: 3 Anxiety: 2 Agitation: 3 Paroxysmal Sweats: 1-Minimal Palms Moist Orientation: 0-Oriented Tacttile Disturbances: 1-Very Mild Itch/Numbness Auditory Disturbances: 0-None Visual Disturbances: 0-None Headache: 0-None Present CIWA-Ar Total Score: 11 S Progress Note (SOAP) Subjective: 48 years old male admitted on 12/14/18 for alcohol and benzo withdrawal sx management doing well with librium detox regimen less tremor mild restlessness Objective: 12/16/18 09:08 Vital Signs Temperature 97.0 F L 12/16/18 06:22 Pulse Rate 74 12/16/18 07:31 Respiratory Rate 18 12/16/18 06:30 Blood Pressure 108/74 12/16/18 07:31 O2 Sat by Pulse Oximetry (%) Laboratory Last Values WBC 10.2 K/mm3 (4.0-10.0) H 12/14/18 11:40 RBC 5.29 M/mm3 (4.00-5.60) 12/14/18 11:40 Hgb 15.4 GM/dL (11.7-16.9) 12/14/18 11:40 Hct 46.5 % (35.4-49) 12/14/18 11:40 MCV 87.9 fl (80-96) 12/14/18 11:40 MCH 29.1 pg (25.7-33.7) 12/14/18 11:40 MCHC 33.1 g/dl (32.0-35.9) 12/14/18 11:40 RDW 13.9 % (11.9-15.9) 12/14/18 11:40 Plt Count 337 K/MM3 (134-434) D 12/14/18 11:40 MPV 8.4 fl (7.5-11.1) 12/14/18 11:40 Sodium 139 mmol/L (136-145) 12/14/18 11:40 Potassium 4.5 mmol/L (3.5-5.1) 12/14/18 11:40 Chloride 104 mmol/L (98-107) 12/14/18 11:40 Carbon Dioxide 28 mmol/L (21-32) 12/14/18 11:40 Anion Gap 6 MMOL/L (8-16) L 12/14/18 11:40 BUN 10.2 mg/dL (7-18) 12/14/18 11:40 Creatinine 1.0 mg/dL (0.55-1.3) 12/14/18 11:40 Est GFR (CKD-EPI)AfAm 101.98 12/14/18 11:40 Est GFR (CKD-EPI)NonAf 87.99 12/14/18 11:40 Random Glucose 112 mg/dL (74-106) H 12/14/18 11:40 Calcium 9.1 mg/dL (8.5-10.1) 12/14/18 11:40 Total Bilirubin 0.3 mg/dL (0.2-1) 12/14/18 11:40 AST 21 U/L (15-37) 12/14/18 11:40 ALT 42 U/L (13-61) 12/14/18 11:40 Alkaline Phosphatase 104 U/L (45-117) 12/14/18 11:40 Total Protein 7.5 g/dl (6.4-8.2) 12/14/18 11:40 Albumin 3.9 g/dl (3.4-5.0) 12/14/18 11:40 RPR Titer Nonreactive (NONREACTIVE) 12/14/18 11:40 lab noted Assessment: 12/16/18 09:08 alcohol and benzo withdrawal sx Plan: continue alcohol and benzo detox
[2018-12-16] MEDS: NICOTINE 14 MG/24 HOURS TOPICAL PATCH TD SCH (10:04)
[2018-12-16] MEDS: CLOTRIMAZOLE 1% CREAM 15 GM TUBE TP SCH ×2 (10:04→22:03)
[2018-12-16] MEDS: PRENATAL VITAMINS W/ FOLIC ACID TABLET (FP) PO SCH (10:04)
[2018-12-16] MEDS: SODIUM CHLORIDE NASAL SPRAY 44 ML BOTTLE NS SCH ×2 (16:07→22:02)
[2018-12-16] MEDS: THIAMINE HCL 100 MG TABLET (FP) PO SCH (22:02)
[2018-12-16] MEDS: MELATONIN 5 MG TABLETS PO PRN (22:04)
[2018-12-17] MEDS ORDERED: chlordiazePOXIDE HCL 10 MG CAPSULE PO PRN
[2018-12-17] MEDS: METHOCARBAMOL 500 MG TABLET PO PRN ×2 (00:25→22:07)
[2018-12-17] MEDS: hydrOXYzine HCL 25 MG TABLET (FP) PO PRN (00:25)
[2018-12-17] MEDS ORDERED: METHADONE HCL 40 MG DISPERSABLE TABLET ONE (04:33)
[2018-12-17] MEDS ORDERED: METHADONE HCL 10 MG TABLET ONE (04:33)
[2018-12-17] MEDS: METHADONE 40 MG, METHADONE 30 MG PO SCH (05:01)
[2018-12-17] MEDS: chlordiazePOXIDE HCL 10 MG CAPSULE PO SCH ×4 (05:01→22:05)
[2018-12-17] MEDS: SODIUM CHLORIDE NASAL SPRAY 44 ML BOTTLE NS SCH ×3 (05:03→22:04)
--- NOTE | 2018-12-17 10:02 | PN ---
[facility] CIWA - CIWA Score Nausea/Vomitin-Mild Nausea/No Vomiting Muscle Tremors: 3 Anxiety: 2 Agitation: 2 Paroxysmal Sweats: 1-Minimal Palms Moist Orientation: 0-Oriented Tacttile Disturbances: 1-Very Mild Itch/Numbness Auditory Disturbances: 0-None Visual Disturbances: 0-None Headache: 0-None Present CIWA-Ar Total Score: 10 S Progress Note (SOAP) Subjective: tremor anxiety otherwise doing ok encourage to discuss aftercare with staff Objective: 12/17/18 10:05 Vital Signs Temperature 97.4 F L 12/17/18 09:41 Pulse Rate 85 12/17/18 09:41 Respiratory Rate 18 12/17/18 09:41 Blood Pressure 115/78 12/17/18 09:41 O2 Sat by Pulse Oximetry (%) Laboratory Last Values WBC 10.2 K/mm3 (4.0-10.0) H 12/14/18 11:40 RBC 5.29 M/mm3 (4.00-5.60) 12/14/18 11:40 Hgb 15.4 GM/dL (11.7-16.9) 12/14/18 11:40 Hct 46.5 % (35.4-49) 12/14/18 11:40 MCV 87.9 fl (80-96) 12/14/18 11:40 MCH 29.1 pg (25.7-33.7) 12/14/18 11:40 MCHC 33.1 g/dl (32.0-35.9) 12/14/18 11:40 RDW 13.9 % (11.9-15.9) 12/14/18 11:40 Plt Count 337 K/MM3 (134-434) D 12/14/18 11:40 MPV 8.4 fl (7.5-11.1) 12/14/18 11:40 Sodium 139 mmol/L (136-145) 12/14/18 11:40 Potassium 4.5 mmol/L (3.5-5.1) 12/14/18 11:40 Chloride 104 mmol/L (98-107) 12/14/18 11:40 Carbon Dioxide 28 mmol/L (21-32) 12/14/18 11:40 Anion Gap 6 MMOL/L (8-16) L 12/14/18 11:40 BUN 10.2 mg/dL (7-18) 12/14/18 11:40 Creatinine 1.0 mg/dL (0.55-1.3) 12/14/18 11:40 Est GFR (CKD-EPI)AfAm 101.98 12/14/18 11:40 Est GFR (CKD-EPI)NonAf 87.99 12/14/18 11:40 Random Glucose 112 mg/dL (74-106) H 12/14/18 11:40 Calcium 9.1 mg/dL (8.5-10.1) 12/14/18 11:40 Total Bilirubin 0.3 mg/dL (0.2-1) 12/14/18 11:40 AST 21 U/L (15-37) 12/14/18 11:40 ALT 42 U/L (13-61) 12/14/18 11:40 Alkaline Phosphatase 104 U/L (45-117) 12/14/18 11:40 Total Protein 7.5 g/dl (6.4-8.2) 12/14/18 11:40 Albumin 3.9 g/dl (3.4-5.0) 12/14/18 11:40 RPR Titer Nonreactive (NONREACTIVE) 12/14/18 11:40 lab noted Assessment: 12/17/18 10:06 alcohol and benzo withdrawal sx Plan: continue alcohol and benzo detox
[2018-12-17] MEDS: PRENATAL VITAMINS W/ FOLIC ACID TABLET (FP) PO SCH (10:10)
[2018-12-17] MEDS: CLOTRIMAZOLE 1% CREAM 15 GM TUBE TP SCH ×2 (10:10→22:04)
[2018-12-17] MEDS: NICOTINE 14 MG/24 HOURS TOPICAL PATCH TD SCH (10:10)
[2018-12-17] MEDS: MENTHOL/PHENOL 1 EACH UD MM PRN ×2 (17:28→22:08)
[2018-12-17] MEDS: MELATONIN 5 MG TABLETS PO PRN (22:05)
[2018-12-17] MEDS: THIAMINE HCL 100 MG TABLET (FP) PO SCH (22:05)
[2018-12-18] MEDS ORDERED: METHADONE HCL 10 MG TABLET ONE (04:54)
[2018-12-18] MEDS ORDERED: METHADONE HCL 40 MG DISPERSABLE TABLET ONE (04:54)
[2018-12-18] MEDS ORDERED: chlordiazePOXIDE HCL 10 MG CAPSULE PO SCH (05:00)
[2018-12-18] MEDS: METHADONE 40 MG, METHADONE 30 MG PO SCH (05:22)
[2018-12-18] MEDS: MENTHOL/PHENOL 1 EACH UD MM PRN (07:00)
[2018-12-18] MEDS: SODIUM CHLORIDE NASAL SPRAY 44 ML BOTTLE NS SCH (07:08)
[2018-12-18 09:03] VITALS: BP 126/76; PULSE 83; TEMP 97.5
[2018-12-18] MEDS: NICOTINE 14 MG/24 HOURS TOPICAL PATCH TD SCH (09:51)
[2018-12-18] MEDS: CLOTRIMAZOLE 1% CREAM 15 GM TUBE TP SCH (09:51)
[2018-12-18] MEDS: PRENATAL VITAMINS W/ FOLIC ACID TABLET (FP) PO SCH (09:51)
--- NOTE | 2018-12-18 17:53 | PN ---
S CIWA - CIWA Score Nausea/Vomitin-No Nausea/No Vomiting Muscle Tremors: None Anxiety: 0-No Anxiety, at Ease Agitation: 1-Slight > Activity Paroxysmal Sweats: No Perspiration Orientation: 0-Oriented Tacttile Disturbances: 0-None Auditory Disturbances: 0-None Visual Disturbances: 0-None Headache: 0-None Present CIWA-Ar Total Score: 1 [facility] Progress Note (SOAP) Subjective: Patient denies current Withdrawal / Detox symptoms and reports that he feels well overall at this time. Objective: PATIENT A & O X 3, OBSERVED AMBULATING ON UNIT UNASSISTED. IN NO ACUTE DISTRESS. 12/18/18 17:51 Vital Signs Temperature 97.5 F L 12/18/18 09:03 Pulse Rate 83 12/18/18 09:03 Respiratory Rate 18 12/18/18 09:03 Blood Pressure 126/76 12/18/18 09:03 O2 Sat by Pulse Oximetry (%) Laboratory Tests 12/14/18 12/14/18 12/14/18 11:40 11:40 11:40 WBC 10.2 H RBC 5.29 Hgb 15.4 Hct 46.5 MCV 87.9 MCH 29.1 MCHC 33.1 RDW 13.9 Plt Count 337 D MPV 8.4 Sodium 139 Potassium 4.5 Chloride 104 Carbon Dioxide 28 Anion Gap 6 L BUN 10.2 Creatinine 1.0 Est GFR (CKD-EPI)AfAm 101.98 Est GFR (CKD-EPI)NonAf 87.99 Random Glucose 112 H Calcium 9.1 Total Bilirubin 0.3 AST 21 ALT 42 Alkaline Phosphatase 104 Total Protein 7.5 Albumin 3.9 RPR Titer Nonreactive LABS NOTED. Assessment: 12/18/18 17:51 COMPLETION OF DETOX REGIMEN. Plan: SINCE PATIENT DENIES CURRENT WITHDRAWAL / DETOX SYMPTOMS AND REPORTS THAT HE FEELS WELL OVERALL, AT PATIENTS REQUEST, HE WAS GRANTED AN EARLY DISCHARGE FROM DETOX UNIT TODAY SO THAT HE MAY RETURN HOME AND TO WORK. PATIENT WILL RETURN TO PREVIOUS [facility] ([place], [place]) AND HE WILL ATTEND LOCAL 12-STEP/NA/AA OUTPATIENT SUPPORT GROUP MEETINGS FOR AFTERCARE.
--- NOTE | 2018-12-18 17:57 | DS ---
[facility] Detox Discharge Summary Admission Date: 12/14/18 Discharge Date: 12/18/18 - History Present History: Alcohol Dependence, Opioid Dependence, Sedative Dependence, MMTP Additional Comments: PATIENT DENIES CURRENT WITHDRAWAL / DETOX SYMPTOMS AT TIME OF DISCHARGE FROM DETOX UNIT. PATIENT RETURNING HOME AND TO WORK AND WILL RETURN TO PREVIOUS [facility] M[facility] ([place], [place]), WHERE HE HAS PREVIOUSLY BEEN A CLIENT. PATIENT WILL ALSO ATTEND LOCAL 12-STEP/NA/AA OUTPATIENT SUPPORT GROUP MEETINGS FOR AFTERCARE. PATIENT WAS DISCHARGED FROM DETOX UNIT IN STABLE MEDICAL CONDITION. Pertinent Past History: Hep C (Treated), History Of Positive PPD, History of Post-Traumatic Stress Disorder, History Of Sciatica, History Of Tonsillectomy, M.M.T.P. - Physical Exam Results Vital Signs: Vital Signs Temperature 97.5 F L 12/18/18 09:03 Pulse Rate 83 12/18/18 09:03 Respiratory Rate 18 12/18/18 09:03 Blood Pressure 126/76 12/18/18 09:03 O2 Sat by Pulse Oximetry (%) Pertinent Admission Physical Exam Findings: WITHDRAWAL SYMPTOMS. Laboratory Tests 12/14/18 12/14/18 12/14/18 11:40 11:40 11:40 WBC 10.2 H RBC 5.29 Hgb 15.4 Hct 46.5 MCV 87.9 MCH 29.1 MCHC 33.1 RDW 13.9 Plt Count 337 D MPV 8.4 Sodium 139 Potassium 4.5 Chloride 104 Carbon Dioxide 28 Anion Gap 6 L BUN 10.2 Creatinine 1.0 Est GFR (CKD-EPI)AfAm 101.98 Est GFR (CKD-EPI)NonAf 87.99 Random Glucose 112 H Calcium 9.1 Total Bilirubin 0.3 AST 21 ALT 42 Alkaline Phosphatase 104 Total Protein 7.5 Albumin 3.9 RPR Titer Nonreactive LABS NOTED. - Treatment Hospital Course: Detox Protocol Followed, Detoxed Safely, Responded well, Discharged Condition Good Patient has Accepted a Rehab Referral to: PT WILL RETURN TO [facility] AND ATTEND 12-STEP/NA/AA OP GROUPS. - Diagnosis (1) Alcohol use disorder Status: Acute (2) Moderate benzodiazepine use disorder Status: Acute (3) Methadone maintenance therapy patient Status: Chronic - AMA Did Patient Leave Against Medical Advice: No
[2018-12-19] MEDS ORDERED: chlordiazePOXIDE HCL 10 MG CAPSULE PO ONE (05:00)
== END 2018-12-18 11:10 | disposition home or self-care (01) | DRG 773 ==
LOC: YASAS 09:29 → Y3N 12:17
PROVIDERS: ADMIT Surgery; ATTEND Surgery
PROC: HZ2ZZZZ Detoxification Services for Substance Abuse Treatment (ICD-10-PCS; principal; 2018-12-14)
DX: F10.230 Alcohol dependence with withdrawal, uncomplicated (principal); F13.230 Sedative, hypnotic or anxiolytic dependence with withdrawal, uncomplicated; F11.20 Opioid dependence, uncomplicated; R11.0 Nausea; R19.7 Diarrhea, unspecified; Z86.19 Personal history of other infectious and parasitic diseases; Z86.59 Personal history of other mental and behavioral disorders
CPT/HCPCS: 36415; 80053; 85027; 86593

== ENCOUNTER 2019-02-10 03:51 | Emergency (ER) | payer OTHER ==
[2019-02-10 04:05] VITALS: BP 100/66; PULSE 102; TEMP 97.9; BMI 33.7
[2019-02-10] MEDS ORDERED: IBUPROFEN 600 MG TABLET (FP) PO ONE ×2 (04:26→04:28)
--- NOTE | 2019-02-10 04:29 | PDOC ---
History of Present Illness - General Chief Complaint: Injury Stated Complaint: FALL History Source: Patient Exam Limitations: No Limitations - History of Present Illness Initial Comments: 02/10/19 04:29 This is a 48-year-old male who said he fell down flight of stairs approximately 6 hours ago. Patient waited until now to come in however. Patient denies any loss of consciousness. Patient is complaining of neck and upper back and left wrist pain. Allergies: as per nursing notes Past Medical History: none Social history: Lives with family. No smoking. No alcohol. No illicit drugs. Surgical history: None General: No fevers or chills, no weakness, no weight loss, fall as per history of present illness HEENT: No change in vision. No sore throat,. No ear pain CardioVascular: no chest discomfort. No shortness of breath Respiratory:No cough, or wheezing. Gastrointestinal: no nausea, vomiting, diarrhea or constipation, No rectal bleeding Genitourinary: No dysuria, hematuria, or frequency Musculoskeletal: No joint or muscle pain or swelling Neurologic: No headache, vertigo, dizziness or loss of consciousness Psychiatric: nor depression Skin: No rashes or easy bruising Endocrine: no increased thirst or abnormal weight change Allergic: no skin or latex allergy All other systems reviewed and normal Exam: General: Well-nourished well-developed individual, no acute distress HEENT: Throat: Normal, tonsils normal, no erythema or exudate Neck: Supple, no meningeal signs, no lymphadenopathy, mild tenderness on palpation lower cervical spine and upper thoracic spine. When I distract the patient there is actually no tenderness on palpation. There is no swelling, ecchymosis and the there is normal range and will Eyes::Pupils equal reactive and round, extraocular motion intact Chest: Nontender to palpation Cardiac: S1-S2 normal, regular rate and rhythm, no murmurs rubs or gallops Respiratory: Lungs clear to auscultation bilateral Abdomen: Soft, nondistended, normal bowel sounds, there is no tenderness on palpation diffusely Extremities: Warm, dry, no cyanosis, clubbing, or edema Left wrist, there is some mild swelling of the area with tenderness on palpation diffusely. There is decreased range of motion secondary to pain. Neurovascular distal is intact. Skin: No rashes Neuro: Alert and oriented x3, CN II - XII intact, nonfocal exam with normal strength, normal sensation, normal reflexes, normal gait, Psych: Normal mood and affect 02/10/19 04:39 Patient decided that he wanted to leave prior to any x-rays being done. Because he only was given Motrin for the pain. Patient says he is a recovering addict and is asking for narcotics. I told patient that narcotics were not warranted in this instance as I saw no evidence of any broken bones. Patient then demanded that he be discharged AGAINST MEDICAL ADVICE. Patient understands that leaving AGAINST MEDICAL ADVICE he did not get the x-rays that there could be potentially injuries that could result in further pain and permanent disability. Patient left AGAINST MEDICAL ADVICE after signing paperwork that he understood his risks. 02/10/19 04:47 Past History - Past Medical History Allergies/Adverse Reactions: Allergies Allergy/AdvReac Type Severity Reaction Status Date / Time No Known Allergies Allergy Verified 12/14/18 10:01 Home Medications: Ambulatory Orders Methadone [Dolophine -] 60 mg PO DAILY 02/10/19 Anemia: No Asthma: No Cancer: No Cardiac Disorders: No CVA: No COPD: No CHF: No Dementia: No Diabetes: No GI Disorders: No Disorders: No HTN: No Hypercholesterolemia: No Kidney Stones: No Liver Disease: No Seizures: No Thyroid Disease: No - Surgical History Abdominal Surgery: No Appendectomy: No Cardiac Surgery: No Cholecystectomy: No Lung Surgery: No Neurologic Surgery: No Orthopedic Surgery: No - Reproductive History Testicular Surgery: No - Immunization History Td Vaccination: No - Suicide/Smoking/Psychosocial Hx Smoking Status: Yes Smoking History: Current every day smoker Years of Tobacco Use: 12 Have you smoked in the past 12 months: No Number of Cigarettes Smoked Daily: 20 Information on smoking cessation initiated: Yes 'Breaking Loose' booklet given: 12/14/18 Hx Alcohol Use: Yes Drug/Substance Use Hx: Yes Substance Use Type: Alcohol Hx Substance Use Treatment: Yes Trauma Specific PMHX - Complaint Specific PMHX Arthritis: No *Physical Exam - Vital Signs Last Vital Signs Temp Pulse Resp BP Pulse Ox 97.9 F 102 H 18 100/66 97 02/10/19 03:55 02/10/19 03:55 02/10/19 03:55 02/10/19 03:55 02/10/19 03:55 *DC/Admit/Observation/Transfer Diagnosis at time of Disposition: Fall Qualifiers: Encounter type: initial encounter Qualified Code(s): W19.XXXA - Unspecified fall, initial encounter - Discharge Dispostion Disposition: AGAINST MEDICAL ADVICE Condition at time of disposition: Stable Decision to Admit order: No - Referrals - Patient Instructions Additional Instructions: AGAINST MEDICAL ADVICE by leaving AGAINST MEDICAL ADVICE he didn't understand and accept the risks of leaving AGAINST MEDICAL ADVICE. You advised that he should get x-rays however you are leaving prior to the x-rays. Follow-up with your primary care doctor or come back if you change your mind. Return to the emergency department immediately with ANY new, persistent or worsening symptoms. Continue any medications as previously prescribed by your physician. You should follow up with your primary doctor as soon as possible regarding today's emergency department visit. . Please make sure your doctor reviews the results of your emergency evaluation. Thank you for coming to the Emergency Department today for your care. It was a pleasure to see you today. Please note that your evaluation is INCOMPLETE until you follow-up with your doctor. - Post Discharge Activity
== END 2019-02-10 04:47 | disposition left against medical advice (07) ==
LOC: FER 03:51
DX: M54.2 Cervicalgia (principal); W18.39XA Other fall on same level, initial encounter; Y93.89 Activity, other specified; Y92.89 Other specified places as the place of occurrence of the external cause; F17.210 Nicotine dependence, cigarettes, uncomplicated
CPT/HCPCS: 99281-25

== ENCOUNTER 2019-04-10 15:36 | Inpatient (IN) | payer OTHER ==
[2019-04-10 19:46] VITALS: BMI 30.7
--- NOTE | 2019-04-10 21:09 | HP ---
CIWA Score - Admission Criteria [facility] Guidelines: Admission for Medically Managed Detox: Requires at least one of the followin. CIWA greater than 12 2. Seizures within the past 24 hours 3. Delirium tremens within the past 24 hours 4. Hallucinations within the past 24 hours 5. Acute intervention needed for co occurring medical disorder 6. Acute intervention needed for co occurring psychiatric disorder 7. Severe withdrawal that cannot be handled at a lower level of care (continued vomiting, continued diarrhea, abnormal vital signs) requiring intravenous medication and/or fluids 8. Admitting History and Physical - Smoking History Smoking history: Current every day smoker Have you smoked in the past 12 months: No Aproximately how many cigarettes per day: 20 - Alcohol/Substance Use Hx Alcohol Use: Yes Admission ROS [facility] - HPI Chief Complaint: benzo detox Allergies/Adverse Reactions: Allergies Allergy/AdvReac Type Severity Reaction Status Date / Time No Known Allergies Allergy Verified 04/10/19 19:28 History of Present Illness: 48 yo denies medical problems, cured HCV, with long h/o OUD, cocaine use here for benzo detox. Pt states he gets xanax from the streets- 4-16mg/day. Was last here a few months ago. In a methadone program at [facility]. Denies other drug use. Lives in [facility]- no controlled substances - Ebola screening Have you traveled outside of the country in the last 21 days: No Have you had contact with anyone from an Ebola affected area: No Do you have a fever: No - Review of Systems Constitutional: No Symptoms Reported EENT: reports: No Symptoms Reported Respiratory: reports: No Symptoms reported Cardiac: reports: No Symptoms Reported GI: reports: No Symptoms Reported : reports: No Symptoms Reported Musculoskeletal: reports: No Symptoms Reported Integumentary: reports: No Symptoms Reported Neuro: reports: No Symptoms reported Endocrine: reports: No Symptoms Reported Hematology: reports: No Symptoms Reported Psychiatric: reports: No Sypmtoms Reported Other Systems: Reviewed and Negative Patient History - Patient Medical History Hx Anemia: No Hx Asthma: No Hx Chronic Obstructive Pulmonary Disease (COPD): No Hx Cancer: No Hx Cardiac Disorders: No Hx Congestive Heart Failure: No Hx Hypertension: No Hx Hypercholesterolemia: No Hx Pacemaker: No HX Cerebrovascular Accident: No Hx Seizures: No Hx Dementia: No Hx Diabetes: No Hx Gastrointestinal Disorders: No Hx Liver Disease: No Hx Genitourinary Disorders: No Hx Sexually Transmitted Disorders: No Hx Renal Disease (ESRD): No Hx Thyroid Disease: No Hx Human Immunodeficiency Virus (HIV): No Hx Hepatitis C: Yes (treated and cured) Hx Depression: Yes (anxiety) Hx Suicide Attempt: No Hx Bipolar Disorder: No Hx Schizophrenia: No - Patient Surgical History Past Surgical History: Yes Hx Neurologic Surgery: No Hx Cataract Extraction: No Hx Cardiac Surgery: No Hx Lung Surgery: No Hx Breast Surgery: No Hx Breast Biopsy: No Hx Abdominal Surgery: No Hx Appendectomy: No Hx Cholecystectomy: No Hx Genitourinary Surgery: No Hx Section: No Hx Orthopedic Surgery: No Other Surgical History: tonsillectomy at age 6 Anesthesia Reaction: No - PPD History Date: 07/15/15 - Smoking Cessation Smoking history: Current every day smoker Have you smoked in the past 12 months: No Aproximately how many cigarettes per day: 20 Hx Chewing Tobacco Use: No Initiated information on smoking cessation: Yes 'Breaking Loose' booklet given: 04/10/19 - Substance & Tx. History Hx Alcohol Use: No Hx Substance Use: No Substance Use Type: Tranquilizers Hx Substance Use Treatment: No - Substances abused Alprazolam (Xanax) Substance route: Oral Frequency: 3-6 times per week Amount used: 8 mg Age of first use: 43 Date of last use: 04/10/19 Alcohol Substance route: Oral Frequency: 1-2 times per week Amount used: 2 to 3 cans/ sometimes 1 can Age of first use: 11 Date of last use: 04/10/19 Benzodiazepine (Klonopin) Substance route: Oral Frequency: 1-2 times per week Amount used: substitute only Age of first use: 45 Date of last use: 04/07/19 Diazepam Substance route: Oral Frequency: 3-6 times per week Amount used: 8 to 10 mg Age of first use: 43 Date of last use: 04/10/19 Admission Physical Exam [facility] - Vital Signs Vital Signs: Vital Signs - 24 hr 04/10/19 19:28 Temperature 98.4 F Pulse Rate 90 Respiratory 16 Rate Blood Pressure 118/77 - Physical General Appearance: Yes: Within Normal Limits HEENTM: Yes: Within Normal Limits, Hearing grossly Normal Respiratory: Yes: Within Normal Limits, Lungs Clear Neck: Yes: Within Normal Limits Cardiology: Yes: Within Normal Limits, Regular Rate Abdominal: Yes: Within Normal Limits, Protuberent Back: Yes: Within Normal Limits, Normal Inspection Musculoskeletal: Yes: Within Normal Limits, Other (back pain) Extremities: Yes: Within Normal Limits Neurological: Yes: Within Normal Limits, Fully Oriented Integumentary: Yes: Within Normal Limits, Track [place] (old antecubital L) - Diagnostic (1) Sedative dependence Current Visit: No Status: Active (2) Seizure Current Visit: No Status: Acute (3) Nicotine dependence Current Visit: No Status: Chronic Qualifiers: Nicotine product type: cigarettes Substance use status: uncomplicated Qualified Code(s): F17.210 - Nicotine dependence, cigarettes, uncomplicated (4) Opioid dependence on agonist therapy Current Visit: No Status: Chronic (5) PPD positive Current Visit: No Status: Chronic Breathalyzer - Breathalyzer Breathalyzer: 0 Urine Drug Screen - Test Device Lot number: [id number] Expiration date: 12/18/20 - Control Is test valid?: Yes - Results Drug screen NEGATIVE: No Urine drug screen results: MTD-Methadone, BZO-Benzodiazepines Inpatient Rehab Admission - Rehab Decision to Admit Inpatient rehab admission?: No
[2019-04-10] MEDS ORDERED: BISMUTH SUBSALICYLATE 524 MG/30 ML UD PO PRN (21:16)
[2019-04-10] MEDS ORDERED: MAGNESIUM HYDROX 2400MG/30ML ORAL SUSPENSION 30 ML CUP PO PRN (21:16)
[2019-04-10] MEDS ORDERED: MAG HYDROX/AL HYDROX/SIMETH 30 ML UNIT-DOSE CUP PO PRN (21:16)
[2019-04-10] MEDS ORDERED: diazePAM 5 MG TABLET PO ONE (21:16)
[2019-04-10] MEDS ORDERED: hydrOXYzine PAMOATE 25 MG CAPSULE (FP) PO PRN (21:16)
[2019-04-10] MEDS ORDERED: MAGNESIUM CITRATE 300 ML BOTTLE PO PRN (21:16)
[2019-04-10] MEDS ORDERED: NICOTINE POLACRILEX 2 MG GUM BUC PRN (21:16)
[2019-04-10] MEDS ORDERED: ACETAMINOPHEN 325 MG TABLET (FP) PO PRN ×2 (21:16)
[2019-04-10] MEDS ORDERED: IBUPROFEN 400 MG TABLET (FP) PO PRN (21:16)
[2019-04-10] MEDS ORDERED: MELATONIN 5 MG TABLETS PO PRN (21:16)
[2019-04-10] MEDS ORDERED: MENTHOL/PHENOL 1 EACH UD MM PRN (21:16)
[2019-04-10] MEDS ORDERED: METHOCARBAMOL 500 MG TABLET PO PRN (21:16)
[2019-04-10] MEDS: THIAMINE HCL 100 MG TABLET (FP) PO SCH (22:46)
[2019-04-10] MEDS: diazePAM 5 MG TABLET PO SCH (22:47)
[2019-04-11] MEDS: diazePAM 5 MG TABLET PO SCH ×3 (05:16→21:45)
[2019-04-11] MEDS ORDERED: hydrOXYzine PAMOATE 50 MG CAPSULE (FP) PO PRN (08:30)
[2019-04-11] MEDS ORDERED: cloNIDine HCL 0.1 MG TABLET PO PRN (08:31)
[2019-04-11] MEDS ORDERED: METHADONE HCL 10 MG TABLET PO ONE (08:43)
[2019-04-11] MEDS ORDERED: METHADONE 40 MG, METHADONE 30 MG PO ONE (09:00)
[2019-04-11] MEDS ORDERED: METHADONE HCL 40 MG DISPERSABLE TABLET ONE (09:16)
[2019-04-11] MEDS ORDERED: METHADONE HCL 10 MG TABLET ONE (09:16)
[2019-04-11] MEDS: diazePAM 5 MG TABLET PO PRN ×2 (09:18→16:01)
[2019-04-11 09:41] LABS: ALBUMIN 3.3 g/dl (3.4-5.0); BILIRUBIN,TOTAL 0.3 mg/dL (0.2-1); BLOOD UREA NITROGEN 13.6 mg/dL (7-18); CALCIUM 8.5 mg/dL (8.5-10.1); CREATININE 0.8 mg/dL (0.55-1.3); POTASSIUM 4.3 mmol/L (3.5-5.1); TOT PROT 6.4 g/dl (6.4-8.2)
[2019-04-11 09:43] LABS: HEMATOCRIT 43.5 % (35.4-49); HEMOGLOBIN 14.7 GM/dL (11.7-16.9); MCH 29.5 pg (25.7-33.7); MCHC 33.7 g/dl (32.0-35.9); MEAN CELL VOLUME 87.6 fl (80-96); PLATELET COUNT 267 K/MM3 (134-434); RBC 4.96 M/mm3 (4.00-5.60); RDW 13.5 % (11.9-15.9); WHITE BLOOD COUNT 7.1 K/mm3 (4.0-10.0)
[2019-04-11] MEDS ORDERED: NICOTINE 21 MG/24 HOURS TOPICAL PATCH TD SCH (10:00)
[2019-04-11] MEDS ORDERED: PRENATAL VITAMINS W/ FOLIC ACID TABLET (FP) PO SCH (10:00)
--- NOTE | 2019-04-11 10:46 | PN ---
[facility] CIWA - CIWA Score Nausea/Vomitin-No Nausea/No Vomiting Muscle Tremors: 3 Anxiety: 3 Agitation: 3 Paroxysmal Sweats: 2 Orientation: 0-Oriented Tacttile Disturbances: 0-None Auditory Disturbances: 0-None Visual Disturbances: 0-None Headache: 0-None Present CIWA-Ar Total Score: 11 S Progress Note (SOAP) Subjective: shakes sweats body aches irritable Objective: 04/11/19 10:49 Vital Signs Temperature 96.8 F L 04/11/19 06:24 Pulse Rate 66 04/11/19 06:24 Respiratory Rate 18 04/11/19 06:24 Blood Pressure 104/59 L 04/11/19 06:24 O2 Sat by Pulse Oximetry (%) Laboratory Tests 04/11/19 04/11/19 08:00 08:00 WBC 7.1 RBC 4.96 Hgb 14.7 Hct 43.5 MCV 87.6 MCH 29.5 MCHC 33.7 RDW 13.5 Plt Count 267 D MPV 8.0 Sodium 138 Potassium 4.3 Chloride 103 Carbon Dioxide 31 Anion Gap 4 L BUN 13.6 Creatinine 0.8 Est GFR (CKD-EPI)AfAm 121.57 Est GFR (CKD-EPI)NonAf 104.89 Random Glucose 136 H Calcium 8.5 Total Bilirubin 0.3 AST 14 L ALT 26 Alkaline Phosphatase 92 Total Protein 6.4 Albumin 3.3 L labs noted aaox3 ambulating no acute distress Assessment: 04/11/19 10:49 withdrawal sx Plan: continue detox increase fluids visitril 50mg prn
[2019-04-11] MEDS ORDERED: FLU VACCINE QUAD 60 MCG/0.5 ML (MDV 19-20) IM ONE (12:00)
[2019-04-11] MEDS ORDERED: PNEUMOC 13-VAL CONJ-DIP CRM/PF 0.5 ML DISP.SYRIN IM ONE (12:00)
[2019-04-11 21:19] VITALS: TEMP 96.8
[2019-04-11] MEDS: THIAMINE HCL 100 MG TABLET (FP) PO SCH (21:45)
[2019-04-12] MEDS ORDERED: METHADONE HCL 40 MG DISPERSABLE TABLET ONE (04:13)
[2019-04-12] MEDS ORDERED: METHADONE HCL 10 MG TABLET ONE (04:13)
[2019-04-12] MEDS ORDERED: METHADONE HCL 40 MG DISPERSABLE TABLET PO SCH (06:00)
[2019-04-12] MEDS ORDERED: diazePAM 5 MG TABLET PO SCH (06:00)
[2019-04-12] MEDS ORDERED: METHADONE 40 MG, METHADONE 30 MG PO SCH (06:00)
[2019-04-12 06:28] VITALS: BP 109/69; PULSE 58
--- NOTE | 2019-04-12 07:08 | PN ---
[facility] Progress Note Note: Vital Signs Temperature 96.8 F L 04/12/19 06:00 Pulse Rate 58 L 04/12/19 06:00 Respiratory Rate 18 04/12/19 06:00 Blood Pressure 109/69 04/12/19 06:00 O2 Sat by Pulse Oximetry (%) CLIENT SIGNED OUT AMA. HE IS VERBALLY ABUSIVE AND PACING W/THREATENING DEMEANOR AND VERBALLY ABUSIVE TOWARDS STAFF. CLIENT IS NOT OPEN TO DISCUSSION ABOUT CONTINUING HIS TXMENT HE IS A/OX3 - CLINICALLY STABLE.
--- NOTE | 2019-04-12 07:48 | DS ---
[facility] Detox Discharge Summary Admission Date: 04/10/19 Discharge Date: 04/12/19 - History Present History: Sedative Dependence, MMTP Additional Comments: CLIENT SIGNED OUT AMA. HE IS VERBALLY ABUSIVE AND PACING W/THREATENING DEMEANOR AND VERBALLY ABUSIVE TOWARDS STAFF. CLIENT IS NOT OPEN TO DISCUSSION ABOUT CONTINUING HIS TXMENT HE IS A/OX3 - CLINICALLY STABLE. Pertinent Past History: NICOTINE DEP SEIZURE D/O HX/O +PPD ANXIETY HEP C - Physical Exam Results Vital Signs: Vital Signs Temperature 96.8 F L 04/12/19 06:00 Pulse Rate 58 L 04/12/19 06:00 Respiratory Rate 18 04/12/19 06:00 Blood Pressure 109/69 04/12/19 06:00 O2 Sat by Pulse Oximetry (%) Pertinent Admission Physical Exam Findings: WITHDRAWAL SX'S Laboratory Tests 04/11/19 04/11/19 04/11/19 08:00 08:00 08:00 WBC 7.1 RBC 4.96 Hgb 14.7 Hct 43.5 MCV 87.6 MCH 29.5 MCHC 33.7 RDW 13.5 Plt Count 267 D MPV 8.0 Sodium 138 Potassium 4.3 Chloride 103 Carbon Dioxide 31 Anion Gap 4 L BUN 13.6 Creatinine 0.8 Est GFR (CKD-EPI)AfAm 121.57 Est GFR (CKD-EPI)NonAf 104.89 Random Glucose 136 H Calcium 8.5 Total Bilirubin 0.3 AST 14 L ALT 26 Alkaline Phosphatase 92 Total Protein 6.4 Albumin 3.3 L RPR Titer Nonreactive - Treatment Hospital Course: Discharged Condition Good Patient has Accepted a Rehab Referral to: [facility] - Medication Discharge Medications: Ambulatory Orders NK [No Known Home Medication] 04/10/19 - Diagnosis (1) Anxiety and depression Current Visit: Yes Status: Chronic (2) Seizure Current Visit: Yes Status: Suspected (3) Uncomplicated sedative, hypnotic or anxiolytic withdrawal Current Visit: Yes Status: Acute (4) Methadone maintenance therapy patient Current Visit: Yes Status: Chronic (5) Nicotine dependence Current Visit: Yes Status: Chronic Qualifiers: Nicotine product type: cigarettes Substance use status: uncomplicated Qualified Code(s): F17.210 - Nicotine dependence, cigarettes, uncomplicated (6) PPD positive Current Visit: Yes Status: Chronic - AMA Did Patient Leave Against Medical Advice: Yes
[2019-04-13] MEDS ORDERED: diazePAM 5 MG TABLET PO ONE (06:00)
== END 2019-04-12 07:09 | disposition left against medical advice (07) | DRG 770 ==
LOC: YASAS 15:36 → Y6N 22:12
PROVIDERS: ADMIT Allergy & Immunology; ATTEND Allergy & Immunology
PROC: HZ2ZZZZ Detoxification Services for Substance Abuse Treatment (ICD-10-PCS; principal; 2019-04-10)
DX: F10.230 Alcohol dependence with withdrawal, uncomplicated (principal); F13.230 Sedative, hypnotic or anxiolytic dependence with withdrawal, uncomplicated; F11.20 Opioid dependence, uncomplicated; F17.210 Nicotine dependence, cigarettes, uncomplicated; F32.9 Major depressive disorder, single episode, unspecified; F41.9 Anxiety disorder, unspecified; G40.909 Epilepsy, unspecified, not intractable, without status epilepticus; R76.11 Nonspecific reaction to tuberculin skin test without active tuberculosis; Z86.19 Personal history of other infectious and parasitic diseases
CPT/HCPCS: 36415; 80053; 85027; 86593; Q2036

== ENCOUNTER 2021-04-03 09:39 | Inpatient (IN) | payer OTHER ==
[2021-04-03 10:23] VITALS: BMI 39.3
[2021-04-03] MEDS ORDERED: diazePAM 5 MG TABLET PO ONE (12:08)
[2021-04-03] MEDS ORDERED: NICOTINE 10 MG CARTRIDGE (INHALER) IH PRN (12:08)
[2021-04-03] MEDS ORDERED: BISMUTH SUBSALICYLATE 524 MG/30 ML PO PRN (12:08)
[2021-04-03] MEDS ORDERED: MENTHOL/PHENOL 1 EACH UD MM PRN (12:08)
[2021-04-03] MEDS ORDERED: MAG HYDROX/AL HYDROX/SIMETH 30 ML UNIT-DOSE CUP PO PRN (12:08)
[2021-04-03] MEDS ORDERED: MAGNESIUM CITRATE 300 ML BOTTLE PO PRN (12:08)
[2021-04-03] MEDS ORDERED: ACETAMINOPHEN 325 MG TABLET (FP) PO PRN ×2 (12:08)
[2021-04-03] MEDS ORDERED: MAGNESIUM HYDROX 2400MG/30ML ORAL SUSPENSION 30 ML CUP PO PRN (12:08)
[2021-04-03] MEDS ORDERED: IBUPROFEN 400 MG TABLET (FP) PO PRN (12:08)
[2021-04-03] MEDS ORDERED: ONDANSETRON *ODT* 4 MG TABLET SL PRN (12:08)
[2021-04-03] MEDS ORDERED: ACETAMINOPHEN 325 MG TABLET (FP) ONE (12:53)
[2021-04-03] MEDS ORDERED: diazePAM 5 MG TABLET ONE (12:53)
[2021-04-03] MEDS: PRENATAL VITAMINS W/ FOLIC ACID TABLET (FP) PO SCH (13:40)
[2021-04-03] MEDS: NICOTINE 21 MG/24 HOURS TOPICAL PATCH TD SCH (13:40)
[2021-04-03] MEDS: METHOCARBAMOL 500 MG TABLET PO PRN (17:40)
[2021-04-03] MEDS: diazePAM 5 MG TABLET PO SCH ×2 (17:41→22:02)
[2021-04-03] MEDS: ALBUTEROL SO4 HFA INHALER IH PRN (19:57)
[2021-04-03] MEDS: THIAMINE HCL 100 MG TABLET (FP) PO SCH (21:38)
[2021-04-03] MEDS: diazePAM 5 MG TABLET PO PRN (21:38)
[2021-04-03] MEDS ORDERED: MELATONIN 5 MG TABLETS PO SCH (22:00)
[2021-04-04] MEDS: diazePAM 5 MG TABLET PO SCH ×4 (05:52→22:51)
[2021-04-04] MEDS ORDERED: methaDONE 40 MG, methaDONE 20 MG PO ONE (08:45)
[2021-04-04] MEDS ORDERED: methaDONE HCL 10 MG TABLET ONE (08:59)
[2021-04-04] MEDS ORDERED: methaDONE HCL 40 MG DISPERSABLE TABLET ONE (09:00)
[2021-04-04] MEDS: diazePAM 5 MG TABLET PO PRN ×2 (09:06→13:58)
[2021-04-04] MEDS ORDERED: methaDONE HCL 10 MG TABLET PO ONE (10:00)
[2021-04-04] MEDS: PRENATAL VITAMINS W/ FOLIC ACID TABLET (FP) PO SCH (10:20)
[2021-04-04] MEDS: NICOTINE 21 MG/24 HOURS TOPICAL PATCH TD SCH (10:21)
[2021-04-04] MEDS: ALBUTEROL SO4 HFA INHALER IH PRN (10:22)
[2021-04-04] MEDS: METHOCARBAMOL 500 MG TABLET PO PRN ×2 (10:24→22:51)
[2021-04-04] MEDS ORDERED: FLU VACC QS2021-22(6MOS UP)/PF 60 MCG/0.5 ML SYRINGE IM ONE (12:00)
[2021-04-04] MEDS ORDERED: SUVOREXANT 10 MG TABLET PO PRN (22:00)
[2021-04-04] MEDS: THIAMINE HCL 100 MG TABLET (FP) PO SCH (22:51)
[2021-04-05] MEDS ORDERED: methaDONE HCL 40 MG DISPERSABLE TABLET ONE (04:17)
[2021-04-05] MEDS ORDERED: methaDONE HCL 10 MG TABLET ONE (04:17)
[2021-04-05] MEDS ORDERED: methaDONE HCL 10 MG TABLET PO SCH (06:00)
[2021-04-05] MEDS: diazePAM 5 MG TABLET PO SCH ×3 (06:19→22:08)
[2021-04-05] MEDS: methaDONE 40 MG, methaDONE 20 MG PO SCH (06:20)
[2021-04-05] MEDS: ALBUTEROL SO4 HFA INHALER IH PRN (09:05)
[2021-04-05] MEDS: diazePAM 5 MG TABLET PO PRN ×2 (09:39→16:49)
[2021-04-05] MEDS: NICOTINE 21 MG/24 HOURS TOPICAL PATCH TD SCH (09:39)
[2021-04-05] MEDS: METHOCARBAMOL 500 MG TABLET PO PRN (09:39)
[2021-04-05] MEDS: PRENATAL VITAMINS W/ FOLIC ACID TABLET (FP) PO SCH (09:39)
[2021-04-05 10:16] LABS: HEMATOCRIT 44.5 % (35.4-49); HEMOGLOBIN 14.9 GM/dL (11.7-16.9); MCH 29.4 pg (25.7-33.7); MCHC 33.4 g/dl (32.0-35.9); MEAN PLT VOLUME 8.1 fl (7.5-11.1); PLATELET COUNT 296 10^3/uL (134-434); RBC 5.06 M/mm3 (4.00-5.60); RDW 13.8 % (11.9-15.9)
[2021-04-05 10:18] LABS: ALBUMIN 3.5 g/dl (3.4-5.0); BLOOD UREA NITROGEN 11.2 mg/dL (7-18)
[2021-04-05 10:21] LABS: CREATININE 0.8 mg/dL (0.55-1.3)
[2021-04-05 10:23] LABS: BILIRUBIN,TOTAL 0.3 mg/dL (0.2-1); TOT PROT 7.6 g/dl (6.4-8.2)
[2021-04-05] MEDS ORDERED: amLODIPine BESYLATE 5 MG TABLET (FP) PO SCH (14:30)
[2021-04-05] MEDS: THIAMINE HCL 100 MG TABLET (FP) PO SCH (22:09)
[2021-04-06] MEDS ORDERED: methaDONE HCL 10 MG TABLET ONE (04:25)
[2021-04-06] MEDS ORDERED: methaDONE HCL 40 MG DISPERSABLE TABLET ONE (04:25)
[2021-04-06] MEDS: methaDONE 40 MG, methaDONE 20 MG PO SCH (05:50)
[2021-04-06] MEDS ORDERED: diazePAM 5 MG TABLET PO SCH (06:00)
[2021-04-06 06:27] VITALS: BP 112/66; PULSE 72; TEMP 97.5
[2021-04-07] MEDS ORDERED: diazePAM 5 MG TABLET PO ONE (06:00)
== END 2021-04-06 07:45 | disposition home or self-care (01) | DRG 773 ==
LOC: YASAS 09:39 → Y6N 12:38
PROVIDERS: ADMIT Allergy & Immunology; ATTEND Allergy & Immunology
PROC: HZ2ZZZZ Detoxification Services for Substance Abuse Treatment (ICD-10-PCS; principal; 2021-04-03)
DX: F10.230 Alcohol dependence with withdrawal, uncomplicated (principal); F13.230 Sedative, hypnotic or anxiolytic dependence with withdrawal, uncomplicated; F11.20 Opioid dependence, uncomplicated; F17.210 Nicotine dependence, cigarettes, uncomplicated; F19.280 Other psychoactive substance dependence with psychoactive substance-induced anxiety disorder; F19.282 Other psychoactive substance dependence with psychoactive substance-induced sleep disorder; F41.9 Anxiety disorder, unspecified; F43.10 Post-traumatic stress disorder, unspecified; I10 Essential (primary) hypertension; J44.9 Chronic obstructive pulmonary disease, unspecified; M54.41 Lumbago with sciatica, right side; G89.29 Other chronic pain; B18.2 Chronic viral hepatitis C; Z86.11 Personal history of tuberculosis; Z86.16 Personal history of COVID-19; Z86.69 Personal history of other diseases of the nervous system and sense organs
CPT/HCPCS: 36415; 80053; 82962; 85027; 86780; 93005; 93010; C9803; U0003; U0005

== ENCOUNTER 2021-08-08 12:24 | Inpatient (IN) | payer OTHER ==
[2021-08-08 12:53] VITALS: BMI 38.2
[2021-08-08] MEDS ORDERED: IBUPROFEN 400 MG TABLET (FP) PO PRN (13:02)
[2021-08-08] MEDS ORDERED: MELATONIN 5 MG TABLETS PO PRN (13:02)
[2021-08-08] MEDS ORDERED: NICOTINE 10 MG CARTRIDGE (INHALER) IH PRN (13:02)
[2021-08-08] MEDS ORDERED: BISMUTH SUBSALICYLATE 524 MG/30 ML PO PRN (13:02)
[2021-08-08] MEDS ORDERED: MENTHOL/PHENOL 1 EACH UD MM PRN (13:02)
[2021-08-08] MEDS ORDERED: DICYCLOMINE HCL 10 MG CAPSULE PO PRN (13:02)
[2021-08-08] MEDS ORDERED: ONDANSETRON *ODT* 4 MG TABLET SL PRN (13:02)
[2021-08-08] MEDS ORDERED: MAG HYDROX/AL HYDROX/SIMETH 30 ML UNIT-DOSE CUP PO PRN (13:02)
[2021-08-08] MEDS ORDERED: MAGNESIUM HYDROX 2400MG/30ML ORAL SUSPENSION 30 ML CUP PO PRN (13:02)
[2021-08-08] MEDS ORDERED: LOPERAMIDE HCL 2 MG CAPSULE PO PRN (13:02)
[2021-08-08] MEDS ORDERED: MAGNESIUM CITRATE 300 ML BOTTLE PO PRN (13:02)
[2021-08-08] MEDS ORDERED: ACETAMINOPHEN 325 MG TABLET (FP) PO PRN ×2 (13:02)
[2021-08-08] MEDS ORDERED: chlordiazePOXIDE HCL 25 MG CAPSULE PO ONE (13:06)
[2021-08-08] MEDS: METHOCARBAMOL 500 MG TABLET PO PRN (14:17)
[2021-08-08] MEDS: hydrOXYzine PAMOATE 25 MG CAPSULE (FP) PO PRN (14:17)
[2021-08-08] MEDS: NICOTINE 7 MG/24 HOURS TOPICAL PATCH TD SCH (14:17)
[2021-08-08] MEDS: chlordiazePOXIDE HCL 25 MG CAPSULE PO SCH ×2 (16:31→22:22)
[2021-08-08] MEDS: ALBUTEROL SO4 HFA INHALER IH PRN (16:52)
[2021-08-08] MEDS: P-EPHED 60MG/TRIPROLIDI 2.5MG TABLET PO PRN (20:36)
[2021-08-08] MEDS: chlordiazePOXIDE HCL 25 MG CAPSULE PO PRN (20:37)
[2021-08-08] MEDS: THIAMINE HCL 100 MG TABLET (FP) PO SCH (22:22)
[2021-08-09] MEDS: chlordiazePOXIDE HCL 25 MG CAPSULE PO SCH ×4 (05:56→22:21)
[2021-08-09] MEDS: chlordiazePOXIDE HCL 25 MG CAPSULE PO PRN ×2 (08:59→15:35)
[2021-08-09] MEDS ORDERED: methaDONE 40 MG, methaDONE 20 MG PO ONE (09:15)
[2021-08-09] MEDS ORDERED: methaDONE HCL 10 MG TABLET ONE (09:17)
[2021-08-09] MEDS ORDERED: methaDONE HCL 40 MG DISPERSABLE TABLET ONE (09:18)
[2021-08-09] MEDS ORDERED: ALBUTEROL SO4 0.083% IH SOL 2.5 MG/3 ML VIAL.NEB. NEB PRN (09:31)
[2021-08-09] MEDS ORDERED: methaDONE HCL 10 MG TABLET PO ONE (10:00)
[2021-08-09] MEDS ORDERED: PRENATAL VITAMINS W/ FOLIC ACID TABLET (FP) PO SCH (10:00)
[2021-08-09] MEDS: NICOTINE 7 MG/24 HOURS TOPICAL PATCH TD SCH (10:26)
[2021-08-09 10:40] LABS: HEMATOCRIT 43.5 % (35.4-49); HEMOGLOBIN 14.2 GM/dL (11.7-16.9); MCH 28.9 pg (25.7-33.7); MCHC 32.7 g/dl (32.0-35.9); MEAN CELL VOLUME 88.2 fl (80-96); MEAN PLT VOLUME 8.1 fl (7.5-11.1); PLATELET COUNT 238 10^3/uL (134-434); RBC 4.93 M/mm3 (4.00-5.60); RDW 13.8 % (11.9-15.9); WHITE BLOOD COUNT 7.7 K/mm3 (4.0-10.0)
[2021-08-09 10:47] LABS: CALCIUM 8.4 mg/dL (8.5-10.1)
[2021-08-09 10:48] LABS: ALBUMIN 3.2 g/dl (3.4-5.0)
[2021-08-09 10:50] LABS: BLOOD UREA NITROGEN 12.7 mg/dL (7-18)
[2021-08-09 10:52] LABS: CREATININE 0.9 mg/dL (0.55-1.3)
[2021-08-09 10:53] LABS: BILIRUBIN,TOTAL 0.4 mg/dL (0.2-1); TOT PROT 6.8 g/dl (6.4-8.2)
[2021-08-09] MEDS ORDERED: NICOTINE 21 MG/24 HOURS TOPICAL PATCH TD SCH (11:46)
[2021-08-09] MEDS ORDERED: NICOTINE 21 MG/24 HOURS TOPICAL PATCH TD ONE (12:45)
[2021-08-09] MEDS: BUDESONIDE/FORMETEROL FUMARATE 160/4.5 mcg INHALER IH SCH ×2 (13:11→22:19)
[2021-08-09] MEDS: P-EPHED 60MG/TRIPROLIDI 2.5MG TABLET PO PRN (17:44)
[2021-08-09] MEDS: hydrOXYzine PAMOATE 25 MG CAPSULE (FP) PO PRN ×2 (17:44→22:20)
[2021-08-09] MEDS: METHOCARBAMOL 500 MG TABLET PO PRN (17:44)
[2021-08-09] MEDS ORDERED: SUVOREXANT 10 MG TABLET PO PRN (22:00)
[2021-08-09] MEDS: THIAMINE HCL 100 MG TABLET (FP) PO SCH (22:20)
[2021-08-10] MEDS: ALBUTEROL SO4 HFA INHALER IH PRN (03:56)
[2021-08-10] MEDS: METHOCARBAMOL 500 MG TABLET PO PRN (03:58)
[2021-08-10] MEDS: P-EPHED 60MG/TRIPROLIDI 2.5MG TABLET PO PRN (03:58)
[2021-08-10] MEDS ORDERED: methaDONE HCL 40 MG DISPERSABLE TABLET ONE (04:22)
[2021-08-10] MEDS ORDERED: methaDONE HCL 10 MG TABLET ONE (04:22)
[2021-08-10] MEDS ORDERED: chlordiazePOXIDE HCL 25 MG CAPSULE PO SCH (05:00)
[2021-08-10] MEDS ORDERED: methaDONE 40 MG, methaDONE 20 MG PO SCH (06:00)
[2021-08-10] MEDS ORDERED: methaDONE HCL 10 MG TABLET PO SCH (06:00)
[2021-08-10 07:25] VITALS: BP 117/77; PULSE 72; TEMP 98.5
[2021-08-10] MEDS: chlordiazePOXIDE HCL 25 MG CAPSULE PO PRN (08:05)
[2021-08-10] MEDS: hydrOXYzine PAMOATE 25 MG CAPSULE (FP) PO PRN (08:05)
[2021-08-10] MEDS ORDERED: NICOTINE 21 MG/24 HOURS TOPICAL PATCH TD SCH (10:00)
[2021-08-11] MEDS ORDERED: chlordiazePOXIDE HCL 10 MG CAPSULE PO PRN
[2021-08-11] MEDS ORDERED: chlordiazePOXIDE HCL 10 MG CAPSULE PO SCH (05:00)
[2021-08-11 08:08] LABS: SARS-CoV-2 NAA Not Detected (Not Detected)
[2021-08-12] MEDS ORDERED: chlordiazePOXIDE HCL 10 MG CAPSULE PO SCH (05:00)
[2021-08-13] MEDS ORDERED: chlordiazePOXIDE HCL 10 MG CAPSULE PO ONE (05:00)
== END 2021-08-10 09:41 | disposition left against medical advice (07) | DRG 770 ==
LOC: YASAS 12:24 → Y6N 13:22
PROVIDERS: ADMIT Allergy & Immunology; ATTEND Allergy & Immunology
PROC: HZ2ZZZZ Detoxification Services for Substance Abuse Treatment (ICD-10-PCS; principal; 2021-08-08)
DX: F10.230 Alcohol dependence with withdrawal, uncomplicated (principal); F11.20 Opioid dependence, uncomplicated; F13.20 Sedative, hypnotic or anxiolytic dependence, uncomplicated; F17.210 Nicotine dependence, cigarettes, uncomplicated; F19.282 Other psychoactive substance dependence with psychoactive substance-induced sleep disorder; F19.280 Other psychoactive substance dependence with psychoactive substance-induced anxiety disorder; F41.8 Other specified anxiety disorders; F32.A Depression, unspecified; F43.10 Post-traumatic stress disorder, unspecified; G47.00 Insomnia, unspecified; I10 Essential (primary) hypertension; J44.9 Chronic obstructive pulmonary disease, unspecified; M54.41 Lumbago with sciatica, right side; G89.29 Other chronic pain; Z86.16 Personal history of COVID-19; Z86.11 Personal history of tuberculosis; Z87.01 Personal history of pneumonia (recurrent); Z56.0 Unemployment, unspecified
CPT/HCPCS: 36415; 80053; 82962; 85027; 86780; C9803-CS; U0003; U0005

== ENCOUNTER 2022-10-16 11:37 | Inpatient (IN) | payer OTHER ==
[2022-10-16 12:13] VITALS: BMI 38.2
[2022-10-16] MEDS ORDERED: ACETAMINOPHEN 325 MG TABLET (FP) PO PRN (12:39)
[2022-10-16] MEDS ORDERED: MAG HYDROX/AL HYDROX/SIMETH 30 ML UNIT-DOSE CUP PO PRN (12:39)
[2022-10-16] MEDS ORDERED: MELATONIN 5 MG TABLETS PO PRN (12:39)
[2022-10-16] MEDS ORDERED: NALOXONE HCL 0.4 MG/ML VIAL IM PRN (12:39)
[2022-10-16] MEDS ORDERED: IBUPROFEN 600 MG TABLET (FP) PO PRN (12:39)
[2022-10-16] MEDS ORDERED: P-EPHED 60MG/TRIPROLIDI 2.5MG TABLET PO PRN (12:39)
[2022-10-16] MEDS ORDERED: IBUPROFEN 400 MG TABLET (FP) PO PRN (12:39)
[2022-10-16] MEDS ORDERED: NICOTINE POLACRILEX 2 MG GUM BUC PRN (12:39)
[2022-10-16] MEDS ORDERED: guaiFENesin 600 MG TABLET.ER (FP) PO PRN (12:39)
[2022-10-16] MEDS ORDERED: BENZONATATE 200 MG CAPSULE PO PRN (12:39)
[2022-10-16] MEDS ORDERED: ONDANSETRON *ODT* 4 MG TABLET SL PRN (12:39)
[2022-10-16] MEDS ORDERED: BENZOCAINE/MENTHOL (CHLORASEPTIC ) LOZENGE MM PRN (12:39)
[2022-10-16] MEDS ORDERED: LOPERAMIDE HCL 2 MG CAPSULE PO PRN (12:39)
[2022-10-16] MEDS ORDERED: METHOCARBAMOL 500 MG TABLET PO PRN (12:39)
[2022-10-16] MEDS ORDERED: BISMUTH SUBSALICYLATE 524 MG/30 ML PO PRN (12:39)
[2022-10-16] MEDS ORDERED: NALOXONE HCL (KLOXXADO) 8 MG SPRAY NS PRN (12:39)
[2022-10-16] MEDS ORDERED: DICYCLOMINE HCL 10 MG CAPSULE PO PRN (12:39)
[2022-10-16] MEDS ORDERED: MAGNESIUM HYDROX 2400MG/30ML ORAL SUSPENSION 30 ML CUP PO PRN (12:39)
[2022-10-16] MEDS ORDERED: POLYETHYLENE GLYCOL (HEALTHYLAX) 3350 17 GM PACKET PO PRN (12:39)
[2022-10-16] MEDS ORDERED: hydrOXYzine PAMOATE 25 MG CAPSULE (FP) PO ONE (12:49)
[2022-10-16] MEDS ORDERED: ALBUTEROL SO4 HFA INHALER IH PRN (12:55)
[2022-10-16] MEDS: hydrOXYzine PAMOATE 25 MG CAPSULE (FP) PO PRN (12:55)
[2022-10-16] MEDS ORDERED: chlordiazePOXIDE HCL 25 MG CAPSULE PO ONE (13:00)
[2022-10-16] MEDS: NICOTINE 7 MG/24 HOURS TOPICAL PATCH TD SCH (13:01)
[2022-10-16] MEDS: levETIRAcetam 500 MG TABLET (FP) PO SCH ×2 (13:01→22:28)
[2022-10-16] MEDS ORDERED: levETIRAcetam 500 MG TABLET (FP) PO ONE (13:02)
[2022-10-16] MEDS ORDERED: NICOTINE 7 MG/24 HOURS TOPICAL PATCH TD ONE (13:02)
[2022-10-16] MEDS: chlordiazePOXIDE HCL 25 MG CAPSULE PO SCH ×2 (17:12→22:27)
[2022-10-16] MEDS: chlordiazePOXIDE HCL 25 MG CAPSULE PO PRN (18:55)
[2022-10-16] MEDS: THIAMINE HCL 100 MG TABLET (FP) PO SCH (22:27)
[2022-10-17] MEDS: chlordiazePOXIDE HCL 25 MG CAPSULE PO PRN ×4 (02:53→19:39)
[2022-10-17] MEDS: chlordiazePOXIDE HCL 25 MG CAPSULE PO SCH ×4 (05:58→22:06)
[2022-10-17] MEDS ORDERED: methaDONE HCL 40 MG DISPERSABLE TABLET PO SCH (07:00)
[2022-10-17] MEDS: methaDONE 40 MG, methaDONE 20 MG PO SCH (07:48)
[2022-10-17] MEDS ORDERED: PRENATAL VITAMINS W/ FOLIC ACID TABLET (FP) PO SCH (10:00)
[2022-10-17] MEDS: NICOTINE 7 MG/24 HOURS TOPICAL PATCH TD SCH (10:19)
[2022-10-17] MEDS: levETIRAcetam 500 MG TABLET (FP) PO SCH ×2 (10:20→22:06)
[2022-10-17] MEDS: hydrOXYzine PAMOATE 25 MG CAPSULE (FP) PO PRN (10:20)
[2022-10-17] MEDS ORDERED: traZODone HCL 100 MG TABLET (FP) PO SCH (22:00)
[2022-10-17] MEDS: THIAMINE HCL 100 MG TABLET (FP) PO SCH (22:06)
[2022-10-18] MEDS: chlordiazePOXIDE HCL 25 MG CAPSULE PO PRN (01:54)
[2022-10-18] MEDS ORDERED: chlordiazePOXIDE HCL 25 MG CAPSULE PO SCH (05:00)
[2022-10-18] MEDS: methaDONE 40 MG, methaDONE 20 MG PO SCH (05:33)
[2022-10-18 06:20] VITALS: BP 102/66; PULSE 662; RESP 20; TEMP 97.7
[2022-10-19] MEDS ORDERED: chlordiazePOXIDE HCL 10 MG CAPSULE PO PRN
[2022-10-19] MEDS ORDERED: chlordiazePOXIDE HCL 10 MG CAPSULE PO SCH (05:00)
[2022-10-20] MEDS ORDERED: chlordiazePOXIDE HCL 10 MG CAPSULE PO SCH (05:00)
[2022-10-21] MEDS ORDERED: chlordiazePOXIDE HCL 10 MG CAPSULE PO ONE (05:00)
== END 2022-10-18 08:49 | disposition home or self-care (01) | DRG 773 ==
LOC: YASAS 11:37 → Y6N 13:03
PROVIDERS: ADMIT Allergy & Immunology; ATTEND Surgery
PROC: HZ2ZZZZ Detoxification Services for Substance Abuse Treatment (ICD-10-PCS; principal; 2022-10-16)
DX: F10.230 Alcohol dependence with withdrawal, uncomplicated (principal); F11.20 Opioid dependence, uncomplicated; F13.20 Sedative, hypnotic or anxiolytic dependence, uncomplicated; F17.210 Nicotine dependence, cigarettes, uncomplicated; F19.282 Other psychoactive substance dependence with psychoactive substance-induced sleep disorder; F19.280 Other psychoactive substance dependence with psychoactive substance-induced anxiety disorder; I10 Essential (primary) hypertension; J44.9 Chronic obstructive pulmonary disease, unspecified; M54.41 Lumbago with sciatica, right side; G89.29 Other chronic pain; Z86.11 Personal history of tuberculosis; Z86.69 Personal history of other diseases of the nervous system and sense organs
CPT/HCPCS: 93005; 93010; C9803-CS; U0003; U0005

== ENCOUNTER 2023-07-07 09:08 | Inpatient (IN) | payer OTHER ==
[2023-07-07 09:49] VITALS: BMI 38.9
[2023-07-07] MEDS ORDERED: ONDANSETRON *ODT* 4 MG TABLET SL PRN (10:20)
[2023-07-07] MEDS ORDERED: BISMUTH SUBSALICYLATE 524 MG/30 ML PO PRN (10:20)
[2023-07-07] MEDS ORDERED: MAG HYDROX/AL HYDROX/SIMETH 30 ML UNIT-DOSE CUP PO PRN (10:20)
[2023-07-07] MEDS ORDERED: NALOXONE HCL 0.4 MG/ML VIAL IM PRN (10:20)
[2023-07-07] MEDS ORDERED: ACETAMINOPHEN 325 MG TABLET (FP) PO PRN (10:20)
[2023-07-07] MEDS ORDERED: POLYETHYLENE GLYCOL (HEALTHYLAX) 3350 17 GM PACKET PO PRN (10:20)
[2023-07-07] MEDS ORDERED: DICYCLOMINE HCL 10 MG CAPSULE PO PRN (10:20)
[2023-07-07] MEDS ORDERED: guaiFENesin 600 MG TABLET.ER (FP) PO PRN (10:20)
[2023-07-07] MEDS ORDERED: IBUPROFEN 400 MG TABLET (FP) PO PRN (10:20)
[2023-07-07] MEDS ORDERED: MAGNESIUM HYDROX 2400MG/30ML ORAL SUSPENSION 30 ML CUP PO PRN (10:20)
[2023-07-07] MEDS ORDERED: LOPERAMIDE HCL 2 MG CAPSULE PO PRN (10:20)
[2023-07-07] MEDS ORDERED: BENZONATATE 200 MG CAPSULE PO PRN (10:20)
[2023-07-07] MEDS ORDERED: NALOXONE HCL (KLOXXADO) 8 MG SPRAY NS PRN (10:20)
[2023-07-07] MEDS ORDERED: P-EPHED 60MG/TRIPROLIDI 2.5MG TABLET PO PRN (10:20)
[2023-07-07] MEDS ORDERED: BENZOCAINE/MENTHOL (CHLORASEPTIC ) LOZENGE MM PRN (10:20)
[2023-07-07] MEDS: chlordiazePOXIDE HCL 25 MG CAPSULE PO PRN (14:14)
[2023-07-07] MEDS: METHOCARBAMOL 500 MG TABLET PO PRN (14:18)
[2023-07-07] MEDS: hydrOXYzine PAMOATE 25 MG CAPSULE (FP) PO PRN (14:19)
[2023-07-07] MEDS: chlordiazePOXIDE HCL 25 MG CAPSULE PO SCH (16:53)
[2023-07-07] MEDS: ALBUTEROL SO4 HFA INHALER IH PRN (18:59)
[2023-07-07] MEDS: MELATONIN 5 MG TABLETS PO SCH (22:34)
[2023-07-07] MEDS: THIAMINE HCL 100 MG TABLET (FP) PO SCH (22:34)
[2023-07-08] MEDS: IBUPROFEN 600 MG TABLET (FP) PO PRN (06:22)
[2023-07-08] MEDS: methaDONE 40 MG, methaDONE 20 MG PO SCH (10:05)
[2023-07-08] MEDS: PRENATAL VITAMINS W/ FOLIC ACID TABLET (FP) PO SCH (10:06)
[2023-07-08] MEDS: methaDONE HCL 10 MG TABLET PO SCH (10:08)
[2023-07-08 11:51] LABS: POTASSIUM 4.2 mmol/L (3.5-5.1)
[2023-07-08 12:02] LABS: ALBUMIN 3.3 g/dl (3.4-5.0); BLOOD UREA NITROGEN 14.2 mg/dL (7-18); HEMATOCRIT 43.6 % (35.4-49); MCH 31.1 pg (25.7-33.7); MCHC 34.4 g/dl (32.0-35.9); MEAN CELL VOLUME 90.3 fl (80-96); MEAN PLT VOLUME 7.9 fl (7.5-11.1); PLATELET COUNT 226 10^3/uL (134-434); RBC 4.83 M/mm3 (4.00-5.60); RDW 13.8 % (11.9-15.9); WHITE BLOOD COUNT 9.4 K/mm3 (4.0-10.0)
[2023-07-08 12:05] LABS: CREATININE 0.9 mg/dL (0.55-1.3)
[2023-07-08 12:06] LABS: BILIRUBIN,TOTAL 0.6 mg/dL (0.2-1); TOT PROT 7.1 g/dl (6.4-8.2)
[2023-07-08] MEDS ORDERED: traZODone HCL 50 MG TABLET (FP) PO PRN (22:00)
[2023-07-08] MEDS: traZODone HCL 50 MG TABLET (FP) PO PRN (22:56)
[2023-07-09] MEDS: chlordiazePOXIDE HCL 25 MG CAPSULE PO SCH (05:38)
[2023-07-09] MEDS ORDERED: ALBUTEROL SO4 0.083% IH SOL 2.5 MG/3 ML VIAL.NEB. NEB PRN (15:03)
[2023-07-10] MEDS: chlordiazePOXIDE HCL 10 MG CAPSULE PO SCH (05:28)
[2023-07-10] MEDS: chlordiazePOXIDE HCL 10 MG CAPSULE PO PRN (13:13)
[2023-07-11] MEDS: chlordiazePOXIDE HCL 10 MG CAPSULE PO SCH (05:19)
[2023-07-12] MEDS: chlordiazePOXIDE HCL 10 MG CAPSULE PO ONE (05:12)
[2023-07-12 06:21] VITALS: BP 139/72; PULSE 71; RESP 17; TEMP 97.7
== END 2023-07-12 07:09 | disposition home or self-care (01) | DRG 773 ==
LOC: YASAS 09:08 → Y6N 10:28
PROVIDERS: ADMIT Allergy & Immunology; ATTEND Allergy & Immunology
PROC: HZ2ZZZZ Detoxification Services for Substance Abuse Treatment (ICD-10-PCS; principal; 2023-07-07)
DX: F10.230 Alcohol dependence with withdrawal, uncomplicated (principal); F11.20 Opioid dependence, uncomplicated; F17.210 Nicotine dependence, cigarettes, uncomplicated; F19.282 Other psychoactive substance dependence with psychoactive substance-induced sleep disorder; F19.280 Other psychoactive substance dependence with psychoactive substance-induced anxiety disorder; F10.282 Alcohol dependence with alcohol-induced sleep disorder; F43.10 Post-traumatic stress disorder, unspecified; I10 Essential (primary) hypertension; J44.9 Chronic obstructive pulmonary disease, unspecified; M54.40 Lumbago with sciatica, unspecified side; G89.29 Other chronic pain; Z86.11 Personal history of tuberculosis
CPT/HCPCS: 36415; 80053; 80305; 82962; 83036; 85027; 86780; 87635; 87811

== ENCOUNTER 2023-09-03 08:50 | Inpatient (IN) | payer OTHER ==
[2023-09-03 09:25] VITALS: BMI 40.2
[2023-09-03] MEDS ORDERED: BENZOCAINE/MENTHOL (CHLORASEPTIC ) LOZENGE MM PRN (09:42)
[2023-09-03] MEDS ORDERED: NICOTINE POLACRILEX 2 MG GUM BUC PRN (09:42)
[2023-09-03] MEDS ORDERED: NALOXONE HCL 0.4 MG/ML VIAL IM PRN (09:42)
[2023-09-03] MEDS ORDERED: ONDANSETRON *ODT* 4 MG TABLET SL PRN (09:42)
[2023-09-03] MEDS ORDERED: MAGNESIUM HYDROX 2400MG/30ML ORAL SUSPENSION 30 ML CUP PO PRN (09:42)
[2023-09-03] MEDS ORDERED: BENZONATATE 200 MG CAPSULE PO PRN (09:42)
[2023-09-03] MEDS ORDERED: POLYETHYLENE GLYCOL (HEALTHYLAX) 3350 17 GM PACKET PO PRN (09:42)
[2023-09-03] MEDS ORDERED: BISMUTH SUBSALICYLATE 524 MG/30 ML PO PRN (09:42)
[2023-09-03] MEDS ORDERED: MAG HYDROX/AL HYDROX/SIMETH 30 ML UNIT-DOSE CUP PO PRN (09:42)
[2023-09-03] MEDS ORDERED: LOPERAMIDE HCL 2 MG CAPSULE PO PRN (09:42)
[2023-09-03] MEDS ORDERED: NALOXONE HCL (KLOXXADO) 8 MG SPRAY NS PRN (09:42)
[2023-09-03] MEDS ORDERED: guaiFENesin 600 MG TABLET.ER (FP) PO PRN (09:42)
[2023-09-03] MEDS ORDERED: DICYCLOMINE HCL 10 MG CAPSULE PO PRN (09:42)
[2023-09-03] MEDS ORDERED: ACETAMINOPHEN 325 MG TABLET (FP) PO PRN (09:42)
[2023-09-03] MEDS ORDERED: PRENATAL VITAMINS W/ FOLIC ACID TABLET (FP) PO ONE (10:29)
[2023-09-03] MEDS ORDERED: IBUPROFEN 600 MG TABLET (FP) PO ONE (10:29)
[2023-09-03] MEDS ORDERED: levETIRAcetam 500 MG TABLET (FP) PO ONE (10:29)
[2023-09-03] MEDS ORDERED: chlordiazePOXIDE HCL 25 MG CAPSULE ONE (10:29)
[2023-09-03] MEDS: IBUPROFEN 600 MG TABLET (FP) PO PRN (10:44)
[2023-09-03] MEDS: chlordiazePOXIDE HCL 25 MG CAPSULE PO SCH (10:44)
[2023-09-03] MEDS: PRENATAL VITAMINS W/ FOLIC ACID TABLET (FP) PO SCH (10:44)
[2023-09-03] MEDS: levETIRAcetam 500 MG TABLET (FP) PO SCH (10:44)
[2023-09-03] MEDS: ALBUTEROL SO4 0.083% IH SOL 2.5 MG/3 ML VIAL.NEB. NEB PRN (16:40)
[2023-09-03] MEDS: THIAMINE HCL 100 MG TABLET (FP) PO SCH (22:39)
[2023-09-03] MEDS: METHOCARBAMOL 500 MG TABLET PO PRN (22:39)
[2023-09-03] MEDS: MELATONIN 5 MG TABLETS PO SCH (22:39)
[2023-09-04] MEDS ORDERED: methaDONE HCL 10 MG TABLET PO SCH (09:15)
[2023-09-04] MEDS: methaDONE 40 MG, methaDONE 20 MG PO ONE (09:26)
[2023-09-04] MEDS: ALBUTEROL SO4 HFA INHALER IH PRN (10:52)
[2023-09-04 12:00] LABS: HEMATOCRIT 50.9 % (35.4-49); HEMOGLOBIN 16.3 GM/dL (11.7-16.9); MCH 28.7 pg (25.7-33.7); MCHC 32.1 g/dl (32.0-35.9); MEAN CELL VOLUME 89.5 fl (80-96); MEAN PLT VOLUME 8.7 fl (7.5-11.1); PLATELET COUNT 288 10^3/uL (134-434); RBC 5.69 M/mm3 (4.00-5.60); RDW 13.5 % (11.9-15.9); WHITE BLOOD COUNT 10.6 K/mm3 (4.0-10.0)
[2023-09-04 12:09] LABS: POTASSIUM 4.7 mmol/L (3.5-5.1)
[2023-09-04 12:17] LABS: ALBUMIN 3.7 g/dl (3.4-5.0)
[2023-09-04 12:18] LABS: BLOOD UREA NITROGEN 16.4 mg/dL (7-18)
[2023-09-04 12:19] LABS: TOT PROT 7.6 g/dl (6.4-8.2)
[2023-09-04 12:25] LABS: BILIRUBIN,TOTAL 0.4 mg/dL (0.2-1)
[2023-09-04] MEDS: chlordiazePOXIDE HCL 25 MG CAPSULE PO PRN (13:11)
[2023-09-05] MEDS: chlordiazePOXIDE HCL 25 MG CAPSULE PO SCH (05:12)
[2023-09-05] MEDS: methaDONE 40 MG, methaDONE 20 MG PO SCH (05:13)
[2023-09-05 14:38] LABS: BASO % 0.4 % (0-2.0); EOS % 2.3 % (0-4.5); HEMATOCRIT 48.1 % (35.4-49); HEMOGLOBIN 15.5 GM/dL (11.7-16.9); LYMPH % 20.2 % (8-40); MCH 28.9 pg (25.7-33.7); MCHC 32.3 g/dl (32.0-35.9); MEAN CELL VOLUME 89.4 fl (80-96); MEAN PLT VOLUME 8.3 fl (7.5-11.1); MONO % 11.5 % (3.8-10.2); NEUT % 65.6 % (42.8-82.8); PLATELET COUNT 277 10^3/uL (134-434); RBC 5.38 M/mm3 (4.00-5.60); RDW 13.8 % (11.9-15.9); WHITE BLOOD COUNT 8.3 K/mm3 (4.0-10.0)
[2023-09-05] MEDS: BACITRACIN 0.9 GM PACKET TP ONE (19:08)
[2023-09-06] MEDS: chlordiazePOXIDE HCL 10 MG CAPSULE PO PRN (02:58)
[2023-09-06] MEDS: chlordiazePOXIDE HCL 10 MG CAPSULE PO SCH (05:42)
[2023-09-06] MEDS: BENZOCAINE 20 % GEL TUBE MM PRN (22:30)
[2023-09-07] MEDS: chlordiazePOXIDE HCL 10 MG CAPSULE PO SCH (05:44)
[2023-09-07 06:21] VITALS: BP 157/84; PULSE 60; RESP 16; TEMP 97.6
[2023-09-08] MEDS ORDERED: chlordiazePOXIDE HCL 10 MG CAPSULE PO ONE (05:00)
== END 2023-09-07 08:08 | disposition home or self-care (01) | DRG 773 ==
LOC: YASAS 08:50 → Y6N 10:44
PROVIDERS: ADMIT Allergy & Immunology; ATTEND Psychiatry & Neurology Pain Medicine
PROC: HZ2ZZZZ Detoxification Services for Substance Abuse Treatment (ICD-10-PCS; principal; 2023-09-03)
DX: F10.230 Alcohol dependence with withdrawal, uncomplicated (principal); F11.20 Opioid dependence, uncomplicated; F13.20 Sedative, hypnotic or anxiolytic dependence, uncomplicated; F17.210 Nicotine dependence, cigarettes, uncomplicated; F19.282 Other psychoactive substance dependence with psychoactive substance-induced sleep disorder; F19.280 Other psychoactive substance dependence with psychoactive substance-induced anxiety disorder; F43.10 Post-traumatic stress disorder, unspecified; I10 Essential (primary) hypertension; J45.909 Unspecified asthma, uncomplicated; N40.0 Benign prostatic hyperplasia without lower urinary tract symptoms; S99.922A Unspecified injury of left foot, initial encounter; W22.8XXA Striking against or struck by other objects, initial encounter; Y92.230 Patient room in hospital as the place of occurrence of the external cause; Z86.11 Personal history of tuberculosis; Z86.19 Personal history of other infectious and parasitic diseases; Z86.39 Personal history of other endocrine, nutritional and metabolic disease
CPT/HCPCS: 36415; 80053; 83036; 85025; 85027; 86780; 94640

== ENCOUNTER 2024-08-20 09:55 | Inpatient (IN) | payer OTHER ==
[2024-08-20 10:41] VITALS: BMI 39.3
[2024-08-20] MEDS ORDERED: MAG HYDROX/AL HYDROX/SIMETH 30 ML UNIT-DOSE CUP PO PRN (10:55)
[2024-08-20] MEDS ORDERED: POLYETHYLENE GLYCOL (HEALTHYLAX) 3350 17 GM PACKET PO PRN (10:55)
[2024-08-20] MEDS ORDERED: ONDANSETRON *ODT* 4 MG TABLET SL PRN (10:55)
[2024-08-20] MEDS ORDERED: DICYCLOMINE HCL 10 MG CAPSULE PO PRN (10:55)
[2024-08-20] MEDS ORDERED: NALOXONE (NARCAN) HCL 4 MG/0.1 ML SPRAY NS PRN (10:55)
[2024-08-20] MEDS ORDERED: NICOTINE POLACRILEX 2 MG GUM BUC PRN (10:55)
[2024-08-20] MEDS ORDERED: BENZONATATE 200 MG CAPSULE PO PRN (10:55)
[2024-08-20] MEDS ORDERED: NICOTINE POLACRILEX 2 MG LOZENGE BC PRN (10:55)
[2024-08-20] MEDS ORDERED: MAGNESIUM HYDROX 2400MG/30ML ORAL SUSPENSION 30 ML CUP PO PRN (10:55)
[2024-08-20] MEDS ORDERED: BENZOCAINE/MENTHOL (CHLORASEPTIC ) LOZENGE MM PRN (10:55)
[2024-08-20] MEDS ORDERED: LOPERAMIDE HCL 2 MG CAPSULE PO PRN (10:55)
[2024-08-20] MEDS ORDERED: guaiFENesin 600 MG TABLET.ER (FP) PO PRN (10:55)
[2024-08-20] MEDS ORDERED: hydrOXYzine PAMOATE 25 MG CAPSULE (FP) PO PRN (10:55)
[2024-08-20] MEDS ORDERED: chlordiazePOXIDE HCL 25 MG CAPSULE ONE (11:52)
[2024-08-20] MEDS: chlordiazePOXIDE HCL 25 MG CAPSULE PO SCH (11:53)
[2024-08-20] MEDS: ACETAMINOPHEN 325 MG TABLET (FP) PO PRN (12:38)
[2024-08-20] MEDS: METHOCARBAMOL 500 MG TABLET PO PRN (12:38)
[2024-08-20] MEDS: levETIRAcetam 500 MG TABLET (FP) PO SCH (12:38)
[2024-08-20] MEDS: chlordiazePOXIDE HCL 25 MG CAPSULE PO PRN (15:12)
[2024-08-20] MEDS: ALBUTEROL SO4 2.5/IPRATROPIUM 0.5 INH SOL 3 ML VIAL.NEB. NEB PRN (17:04)
[2024-08-20] MEDS: TAMSULOSIN HCL 0.4 MG CAP PO SCH (22:28)
[2024-08-20] MEDS: APIXABAN 5 MG TABLET PO SCH (22:28)
[2024-08-20] MEDS: ATORVASTATIN CA 40 MG TABLET (FP) PO SCH (22:28)
[2024-08-20] MEDS: THIAMINE 100 MG TABLET PO SCH (22:28)
[2024-08-20] MEDS: MELATONIN 5 MG TABLETS PO SCH (22:32)
[2024-08-21] MEDS ORDERED: methaDONE HCL 40 MG DISPERSABLE TABLET PO SCH (06:00)
[2024-08-21] MEDS: PRENATAL VITAMINS W/ FOLIC ACID TABLET (FP) PO SCH (10:10)
[2024-08-21 11:08] LABS: HEMATOCRIT 48.5 % (40.1-51.0); HEMOGLOBIN 15.5 g/dL (13.7-17.5); MEAN CELL VOLUME 90.5 fl (79.0-92.2); MEAN PLT VOLUME 10.3 fl (9.4-12.4); PLATELET COUNT 306 x10^3/uL (163-337); RDW 12.8 % (12.2-16.1)
[2024-08-21 11:23] LABS: POTASSIUM 4.7 mmol/L (3.5-5.1)
[2024-08-21 11:25] LABS: CALCIUM 8.6 mg/dL (8.5-10.1)
[2024-08-21 11:26] LABS: ALBUMIN 3.9 g/dl (3.4-5.0); BLOOD UREA NITROGEN 10.3 mg/dL (7-18)
[2024-08-21 11:29] LABS: CREATININE 0.9 mg/dL (0.55-1.3)
[2024-08-21 11:30] LABS: BILIRUBIN,TOTAL 0.3 mg/dL (0.2-1); TOT PROT 7.3 g/dl (6.4-8.2)
[2024-08-21] MEDS: SUVOREXANT 15 MG TABLET PO PRN (22:07)
[2024-08-22] MEDS: chlordiazePOXIDE HCL 25 MG CAPSULE PO SCH (06:00)
[2024-08-23] MEDS: chlordiazePOXIDE HCL 10 MG CAPSULE PO SCH (05:35)
[2024-08-23] MEDS: ALBUTEROL SO4 HFA INHALER IH PRN (09:54)
[2024-08-23] MEDS: chlordiazePOXIDE HCL 10 MG CAPSULE PO PRN (09:55)
[2024-08-24] MEDS: chlordiazePOXIDE HCL 10 MG CAPSULE PO SCH (05:49)
[2024-08-24 21:07] VITALS: RESP 16
[2024-08-25] MEDS: chlordiazePOXIDE HCL 10 MG CAPSULE PO ONE (05:48)
[2024-08-25 09:17] VITALS: BP 107/59; PULSE 86; TEMP 97.7
== END 2024-08-25 09:10 | disposition home or self-care (01) | DRG 775 ==
LOC: YASAS 09:55 → Y6N 11:50
PROVIDERS: ADMIT Allergy & Immunology; ATTEND Allergy & Immunology
PROC: HZ2ZZZZ Detoxification Services for Substance Abuse Treatment (ICD-10-PCS; principal; 2024-08-20)
DX: F10.230 Alcohol dependence with withdrawal, uncomplicated (principal); F17.210 Nicotine dependence, cigarettes, uncomplicated; F41.9 Anxiety disorder, unspecified; F32.A Depression, unspecified; I48.91 Unspecified atrial fibrillation; J44.9 Chronic obstructive pulmonary disease, unspecified; E78.5 Hyperlipidemia, unspecified; E11.9 Type 2 diabetes mellitus without complications; Z79.84 Long term (current) use of oral hypoglycemic drugs; M54.50 Low back pain, unspecified; G89.29 Other chronic pain; N40.0 Benign prostatic hyperplasia without lower urinary tract symptoms; Z86.19 Personal history of other infectious and parasitic diseases; Z86.11 Personal history of tuberculosis; Z87.01 Personal history of pneumonia (recurrent); Z79.01 Long term (current) use of anticoagulants
CPT/HCPCS: 36415; 80053; 80305; 80307; 82962; 85027; 86780; 93005; 93010; 94640